=== PATIENT | female | born 1940 | race Caucasian/White ===

== ENCOUNTER 2017-06-10 15:44 | Outpatient (CLI) | payer MEDICARE, OTHER ==
[2017-06-10 17:20] LABS: FERRITIN 71.2 ng/mL (11.0-306.8)
[2017-06-10 17:32] LABS: THYROID STIMULATING HORMONE 1.59 uIU/mL (0.34-5.60)
== END 2017-06-10 15:45 | disposition home or self-care (01) ==
LOC: LAB 15:44
PROVIDERS: ATTEND Internal Medicine
DX: F32.9 Major depressive disorder, single episode, unspecified (principal); D64.0 Hereditary sideroblastic anemia; R53.83 Other fatigue; I10 Essential (primary) hypertension; E03.9 Hypothyroidism, unspecified; M25.569 Pain in unspecified knee; M54.2 Cervicalgia
CPT/HCPCS: 36415; 82728; 84439; 84443; 84481

== ENCOUNTER 2017-08-19 13:52 | Outpatient (CLI) | payer MEDICARE, OTHER | END 2017-08-19 13:53 | disposition home or self-care (01) | LOC: RT 13:52 | PROVIDERS: ATTEND Orthopaedic Surgery Orthopaedic Surgery of the Spine | DX: Z01.810 Encounter for preprocedural cardiovascular examination (principal) | CPT/HCPCS: 93005 ==

== ENCOUNTER 2018-06-10 12:19 | Outpatient (CLI) | payer MEDICARE, OTHER ==
[2018-06-10 13:09] LABS: ALBUMIN 4.1 g/dL (3.2-5.5); ALBUMIN/GLOBULIN RATIO 1.2 (1.0-2.2); BILIRUBIN,TOTAL 0.4 mg/dL (0.2-1.0); CALCIUM 9.2 mg/dL (8.5-10.3); CREATININE 0.6 mg/dL (0.4-1.0); TOTAL PROTEIN 7.5 g/dL (6.7-8.2)
[2018-06-10 13:25] LABS: THYROID STIMULATING HORMONE 1.78 uIU/mL (0.34-5.60)
[2018-06-10 13:27] LABS: FREE T4 (FREE THYROXINE) 0.68 ng/dL (0.58-1.64)
[2018-06-10 13:31] LABS: FERRITIN 61.5 ng/mL (11.0-306.8)
== END 2018-06-10 12:20 | disposition home or self-care (01) ==
LOC: LAB 12:19
PROVIDERS: ATTEND Internal Medicine
DX: R53.83 Other fatigue (principal); I10 Essential (primary) hypertension; E03.9 Hypothyroidism, unspecified; M54.2 Cervicalgia; E87.8 Other disorders of electrolyte and fluid balance, not elsewhere classified; D64.9 Anemia, unspecified; D64.0 Hereditary sideroblastic anemia; E55.9 Vitamin D deficiency, unspecified
CPT/HCPCS: 36415; 80053; 82306; 82728; 84439; 84443; 84481

== ENCOUNTER 2020-09-01 22:16 | Outpatient (CLI) | payer MEDICARE, OTHER | END 2020-09-01 22:17 | disposition critical access hospital (66) | LOC: EMS 22:16 | PROVIDERS: ATTEND Surgery | DX: R07.89 Other chest pain (principal); R20.0 Anesthesia of skin | CPT/HCPCS: A0425; A0427 ==

== ENCOUNTER 2020-09-01 22:26 | Inpatient (IN) | payer MEDICARE, OTHER ==
--- NOTE | 2020-09-01 22:43 | ED Physician Documentation ---
PD HPI CHEST PAIN - Stated complaint Stated Complaint: THROAT PX/ CP - Chief complaint Chief Complaint: Cardiac - History obtained from History obtained from: Patient, EMS - History of Present Illness Timing - onset: Enter time (21:00) Timing - onset during: Rest Timing - details: Abrupt onset Pain level max: 4 Pain level now: 0 Quality: Pressure, Pain, Other (burning) Location: Other (throat) Radiation: Other (midline chest) Improved by: Nothing Worsened by: Other (no apparent exacerbating factors) Associated symptoms: No: Shortness of air, Diaphoresis, Nausea, Vomiting, Feeling faint / dizzy, Palpitations Similar symptoms before: Has not had sx before Recently seen: Not recently seen - Additional information Additional information: BIBA. Patient took 325mg ASA x 2 prior to EMS arrival. c/o sudden onset of pain and pressure sensation as well as burning in her throat. This started approximately 9 PM tonight while sitting at home listening to her reading to her. The pain subsequently radiated to her anterior midline chest. She says she briefly had bilateral shoulder numbness as well. She denies palpitations including sensation of racing or skipping palpitations. EMS found patient to be in PRABHA with rate as high as 180s; given 15 mg IV cardizem en route with improvement in heart rate although she remains tachycardic en route and on arrival (110s-130s). Denies h/o similar symptoms and denies h/o atrial fibrillation. Review of Systems Constitutional: reports: Reviewed and negative Eyes: reports: Reviewed and negative Ears: reports: Reviewed and negative Nose: reports: Reviewed and negative Throat: reports: Reviewed and negative. denies: Sore throat ("throat pain", but no sore throat per se) Cardiac: reports: Chest pain / pressure. 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 denies: Generalized weakness, Focal weakness PD PAST MEDICAL HISTORY - Past Medical History Past Medical History: Yes Cardiovascular: Hypertension Endocrine/Autoimmune: HyPOthyroidism - Past Surgical History Past Surgical History: No - Present Medications Home Medications: Ambulatory Orders Medication Instructions Recorded Confirmed Atenolol/Chlorthalidone [Tenoretic 1 tab PO DAILY 09/02/20 09/02/20 50 Tablet] Cholecalciferol (Vitamin D3) 1 tab PO DAILY 09/02/20 09/02/20 [Vitamin D3] Potassium Chloride 1 tab PO BID 09/02/20 09/02/20 Progesterone,Micronized 1 tab PO DAILY 09/02/20 09/02/20 [Prometrium] Thyroid,Pork [[place] Thyroid] 2 tab PO DAILY 09/02/20 09/02/20 - Allergies Allergies/Adverse Reactions: Allergies Allergy/AdvReac Type Severity Reaction Status Date / Time No Known Drug Allergies Allergy Verified 09/01/20 22:38 - Living Situation Living Situation: reports: With family Living Arrangement: reports: At home - Social History Does the pt smoke?: No PD ED PE NORMAL - Vitals Vital signs reviewed: Yes - General General: Alert and oriented X 3, No acute distress, Well developed/nourished - Neck Neck: Supple, no meningeal sign, No JVD - Cardiac Cardiac: No murmur - Respiratory Respiratory: No respiratory distress, Clear bilaterally - Abdomen Abdomen: Soft, Non tender - Derm Derm: Normal color, Warm and dry - Extremities Extremities: No edema - Neuro Neuro: Alert and oriented X 3 PD ED PE EXPANDED - Cardiac Cardiac: Tachy, Irregularly irregular Results - Vitals Vitals: Vital Signs - 24 hr 09/01/20 09/01/20 09/01/20 22:26 22:40 23:10 Temperature 36.6 C 36.6 C Heart Rate 110 H 110 H 121 H Respiratory 20 20 16 Rate Blood Pressure 157/93 H 157/93 H 151/98 H O2 Saturation 97 97 99 09/01/20 09/02/20 23:23 01:32 Temperature Heart Rate 97 152 H Respiratory 15 Rate Blood Pressure 115/67 O2 Saturation 99 Oxygen O2 Source Room air - EKG (time done) No standard instances Rate: Rate (enter#) (111), Tachy Rhythm: Atrial fibrillation [place]: Normal QRS: LVH Ischemia: Normal ST segments - Labs Labs: Laboratory Tests 09/01/20 09/01/20 09/01/20 22:45 22:45 22:45 WBC 7.4 RBC 4.50 Hgb 13.9 Hct 41.3 MCV 91.8 MCH 30.9 MCHC 33.7 RDW 12.9 Plt Count 266 MPV 9.1 Neut # (Auto) 4.8 Lymph # (Auto) 1.5 Tucker # (Auto) 0.8 Eos # (Auto) 0.2 Baso # (Auto) 0.0 Absolute Nucleated RBC 0.00 Nucleated RBC % 0.0 PT INR APTT Sodium 134 L Potassium 3.0 L Chloride 98 L Carbon Dioxide 26 Anion Gap 10.0 BUN 23 H Creatinine 0.7 Estimated GFR (MDRD) 80 L Glucose 143 H Calcium 8.9 Total Bilirubin 0.8 AST 26 ALT 20 Alkaline Phosphatase 42 Troponin I High Sens 7.5 Total Protein 7.5 Albumin 3.8 Globulin 3.7 Albumin/Globulin Ratio 1.0 Lipase 33 TSH 09/01/20 09/01/20 22:45 23:03 WBC RBC Hgb Hct MCV MCH MCHC RDW Plt Count MPV Neut # (Auto) Lymph # (Auto) Tucker # (Auto) Eos # (Auto) Baso # (Auto) Absolute Nucleated RBC Nucleated RBC % PT 12.6 INR 1.1 APTT 26.5 Sodium Potassium Chloride Carbon Dioxide Anion Gap BUN Creatinine Estimated GFR (MDRD) Glucose Calcium Total Bilirubin AST ALT Alkaline Phosphatase Troponin I High Sens Total Protein Albumin Globulin Albumin/Globulin Ratio Lipase TSH 6.85 H - Rads (name of study) chest xray Radiology: Prelim report reviewed, See rad report CT chest angio (PE study) Radiology: Prelim report reviewed, See rad report PD MEDICAL DECISION MAKING - ED course Complexity details: reviewed results, re-evaluated patient, considered differential, d/w patient, d/w family ED course: arrives in new-onset PRABHA with modest improvement in rate after 15mg IV cardizem by medics. Given 15mg IV cardizem in ED and her heart rate was subsequently 100s-110s but she did not convert to NSR, subsequently heart rate gradually but steadily increased, again getting as high as 170s at times. Of note, she continued to deny feeling any sensation of palpitations, thus there is not a confident time of onset of the atrial fibrillation and thus I did not attempt electrocardioversion. IV cardizem drip started and case d/w hospitalist who accepts admission contingent on CT chest to r/o PE Departure - Departure Disposition: 66 [facility] DC/Xfer Clinical Impression: Rapid atrial fibrillation, Chest pain Condition: Stable Discharge Date/Time: 09/02/20 03:24
[2020-09-01 23:05] LABS: ALBUMIN 3.8 g/dL (3.2-5.5); BILIRUBIN,TOTAL 0.8 mg/dL (0.2-1.0); CALCIUM 8.9 mg/dL (8.5-10.3); CREATININE 0.7 mg/dL (0.4-1.0); TOTAL PROTEIN 7.5 g/dL (6.7-8.2)
[2020-09-01] MEDS ORDERED: diltiaZEM INJ 5 MG/ML VIAL IVP STA (23:05)
[2020-09-01 23:12] LABS: BASOPHILS % (AUTO) 0.4 %; EOSINOPHILS # (AUTO) 0.2 10^3/uL (0.0-0.7); EOSINOPHILS % (AUTO) 2.3 %; HGB - HEMOGLOBIN 13.9 g/dL (12.0-16.0); LYMPHOCYTES # (AUTO) 1.5 10^3/uL (1.5-3.5); LYMPHOCYTES % (AUTO) 20.4 %; MEAN CORPUSCULAR HEMOGLOBIN 30.9 pg (27.0-31.0); MEAN CORPUSCULAR HGB CONC 33.7 g/dL (32.0-36.0); MEAN CORPUSCULAR VOLUME 91.8 fL (81.0-99.0); MEAN PLATELET VOLUME 9.1 fL (7.9-10.8); MONOCYTES # (AUTO) 0.8 10^3/uL (0.0-1.0); MONOCYTES % (AUTO) 11.1 %; NEUTROPHILS # (AUTO) 4.8 10^3/uL (1.5-6.6); NEUTROPHILS % (AUTO) 65.5 %; PLT - PLATELET COUNT 266 10^3/uL (130-450); RED CELL DISTRIBUTION WIDTH 12.9 % (12.0-15.0); WHITE BLOOD COUNT 7.4 x10^3/uL (4.8-10.8)
[2020-09-01 23:14] LABS: INR 1.1 (0.8-1.2); PT - PROTHROMBIN TIME 12.6 secs (9.9-12.6)
[2020-09-01 23:21] LABS: PARTIAL THROMBOPLASTIN TIME 26.5 secs (24.9-33.3)
[2020-09-02] MEDS ORDERED: DILTIAZEM 125 MG in DEXTROSE 5% 100 ML IV STA (01:52)
[2020-09-02] MEDS ORDERED: ACETAMINOPHEN 325 MG TABLET PO PRN (02:02)
[2020-09-02] MEDS ORDERED: ONDANSETRON 4 MG/2 ML VIAL IVP PRN (02:02)
[2020-09-02] MEDS ORDERED: SODIUM CHLORIDE FLUSH 0.9% 10 ML SYRINGE IVP PRN (02:02)
[2020-09-02] MEDS ORDERED: diltiaZEM INJ 5 MG/ML VIAL ONE (02:08)
--- NOTE | 2020-09-02 02:12 | HISTORY & PHYSICAL EXAMINATION ---
Chief Complaint - Chief Complaint Chief Complaint: Chest Pain History of Present Illness - Admitted From Admitted From:: [facility] ED - History Obtained From Records Reviewed: Yes History obtained from: Patient - History of Present Illness HPI Comment/Other: Patient is an 80-year-old female with medical history significant for hypertension, hypothyroidism, hypokalemia, arthritis and insomnia who presented to the ED with a complaint of a strong pressure/burning sensation in her throat which radiated to her chest and bilateral shoulder numbness. This happened around 9:30 PM on September 01, 2020 while she was sitting on the couch reading a book. As a result EMS was called. Upon arrival she was noted to be in atrial fibrillation with rapid ventricular rhythm with a heart rate of 180. She was given diltiazem 15 mg IV x1 and then brought to the ED. At the time of my assessment she denied any difficulty breathing, chest pain, abdominal pain, nausea, vomiting, fever or chills. She was given another dose of diltiazem 15 mg IV in the ED which resulted in her heart rate improving to a range of 110 to 120. However shortly after that heart rate fluctuated between 130s to 150s. Consequently she was placed on a diltiazem drip and presented for admission. She denies any previous occurrence of atrial fibrillation and aside from high blood pressure she denies any cardiovascular disease. History - Past Medical History Cardiovascular: reports: Hypertension Endocrine/Autoimmune: reports: HyPOthyroidism Musculoskeletal: reports: Osteoarthritis Other Past Medical History: Hypokalemia, Insomnia - Family & Social History Family History: Mother: Hypertension, Father: Hypertension Living arrangement: At home Living Situation: With spouse/s.o. Social History Notes: She does not use tobacco products, recreational substances or alcohol. - POLST Patient has POLST: No POLST Status: Full Code Meds/Allgy - Home Medications Home Medications: Ambulatory Orders Medication Instructions Recorded Confirmed Atenolol/Chlorthalidone [Tenoretic 1 tab PO DAILY 09/02/20 09/02/20 50 Tablet] Cholecalciferol (Vitamin D3) 1 tab PO DAILY 09/02/20 09/02/20 [Vitamin D3] Potassium Chloride 1 tab PO BID 09/02/20 09/02/20 Progesterone,Micronized 1 tab PO DAILY 09/02/20 09/02/20 [Prometrium] Thyroid,Pork [[place] Thyroid] 2 tab PO DAILY 09/02/20 09/02/20 - Allergies Allergies/Adverse Reactions: Allergies Allergy/AdvReac Type Severity Reaction Status Date / Time No Known Drug Allergies Allergy Verified 09/01/20 22:38 Review of Systems - Constitutional Constitutional: denies: Fatigue, Fever, Chills, Malaise, Weakness - Eyes Eyes: denies: Pain - Ears, Nose & Throat Ears, Nose & Throat: denies: Ear pain - Cardiovascular Cariovascular: reports: Irregular heart rate, Chest pain. denies: Palpitations, Edema, Lightheadedness, Syncope, Exertional dyspnea - Respiratory Respiratory: denies: Cough, Sputum production, Wheezing, SOB at rest, SOB with exertion - Gastrointestinal Gastrointestinal: denies: Abdominal pain, Abdominal distention, Constipation, Diarrhea, Nausea, Vomiting - Genitourinary Genitourinary: denies: Dysuria, Frequency, Urgency, Hematuria - Musculoskeletal Musculoskeletal: denies: Muscle pain, Back pain, Muscle aches, Stiffness - Integumentary Integumentary: denies: Rash, Pruritis, Lesions - Neurological Neurological: denies: General weakness, Focal weakness, Headache, Dizziness - Psychiatric Psychiatric: denies: Depression, Anxiety - Endocrine Endocrine: denies: Polyuria, Polydypsia - Hematologic/Lymphatic Hematologic/Lymphatic: denies: Anemia, Bruising Prior Level of Functionality: Patient is independent of activities of daily living Exam - Vital Signs Vital Signs: Vital Signs x48h Temp Pulse Resp BP Pulse Ox 09/02/20 01:32 152 H 15 115/67 99 09/01/20 23:23 97 09/01/20 23:10 121 H 16 151/98 H 99 09/01/20 22:40 36.6 C 110 H 20 157/93 H 97 09/01/20 22:26 36.6 C 110 H 20 157/93 H 97 - Physical Exam General Appearance: positive: No acute distress, Alert Eyes Bilateral: positive: PERRL, EOMI ENT: positive: No signs of dehydration Neck: positive: No JVD, Trachea midline Respiratory: positive: Chest non-tender, No respiratory distress, Breath sounds nml. negative: Wheezes, Rales, Rhonchi Cardiovascular: positive: Irregularly irregular, Tachycardia Abdomen: positive: Non-tender, No organomegaly, Nml bowel sounds, No distention. negative: Guarding, Rebound Back: positive: Nml inspection Skin: positive: Color nml, No rash, Warm, Dry Extremities: positive: Non-tender, Full ROM, Nml appearance, No pedal edema Neurologic/Psychiatric: positive: Oriented x3, Mood/affect nml Conclusion/Plan - Problem List (1) Atrial fibrillation with RVR Conclusion/Plan: New onset. Etiology is undetermined. Patient was given diltiazem 15 mg IV x2 doses. Her heart rate improved to about 100 but subsequently suddenly increased to about 140s. For lack of knowledge of specific time of onset, cardioversion was not attempted. The patient was started on a diltiazem drip. Will continue. 2D echo ordered for the morning. Patient takes and atenolol/HCTZ combination at home. We will continue the atenolol 50 mg p.o. daily. Patient's Chadvasc score is 4. She would likely need an oral anticoagulant upon discharge. (2) Chest pain Conclusion/Plan: It is atypical vs noncardiac(more likely, considering her pain started in her neck and then radiated down towards chest). This sensation may also have been as a result of the rapid ventricular rhythm It resolved with improvement in her heart rate after administration of diltiazem 50 mg IV x1 by EMS. Patient does not have any significant cardiac history. Initial troponin was 7.5. Will trend X2. Patient was given aspirin 325 mg p.o. x1 Qualifiers: Chest pain type: unspecified Qualified Code(s): R07.9 - Chest pain, unspecified (3) Hypertension Conclusion/Plan: Patient is currently on a diltiazem drip. At home the patient takes atenolol/HCTZ combination. We will continue the atenolol 50 mg p.o. daily. (4) Hypokalemia Conclusion/Plan: This is chronic. Patient is on supplemental potassium at home. 10 mEq capsules. 1 capsule p.o. twice daily Will replace and recheck with a.m. labs. We will also check magnesium and replace accordingly. (5) Hypothyroidism Conclusion/Plan: Patient takes [place] Thyroid 15 mg tablets. 2 tablets p.o. daily Will resume patient's home medications once verified. (6) Insomnia Conclusion/Plan: She takes Klonopin for sleep. - Lab Results Fish Bones: 09/01/20 22:45 09/01/20 22:45 Core Measures - Anticipated LOS I expect patient to be DC'd or transferred within 96 hours.: Yes - DVT/VTE - Prophylaxis VTE/DVT Device ordered at admit?: Yes VTE/DVT Prophylaxis med ordered at admit?: Yes
[2020-09-02] MEDS: POTASSIUM CHLORIDE 20 MEQ TABLET PO STA ×2 (02:21→02:34)
[2020-09-02] MEDS ORDERED: IOVERSOL 320 100 ML VIAL IVP ONE ×2 (02:31→03:05)
[2020-09-02] MEDS ORDERED: ASPIRIN 325 MG TABLET PO STA (02:45)
[2020-09-02] MEDS: diltiaZEM INJ 125 MG in DEXTROSE 5% 100 ML IV SCH ×2 (03:33→20:25)
[2020-09-02] MEDS: POTASSIUM CHLOR 10 MEQ/100 ML 10 MEQ/100 ML BAG IV SCH ×4 (04:01→09:50)
[2020-09-02 04:36] LABS: BASOPHILS % (AUTO) 0.5 %; EOSINOPHILS # (AUTO) 0.2 10^3/uL (0.0-0.7); EOSINOPHILS % (AUTO) 1.9 %; HGB - HEMOGLOBIN 13.8 g/dL (12.0-16.0); LYMPHOCYTES % (AUTO) 24.5 %; MEAN CORPUSCULAR HEMOGLOBIN 30.3 pg (27.0-31.0); MEAN CORPUSCULAR HGB CONC 33.2 g/dL (32.0-36.0); MEAN CORPUSCULAR VOLUME 91.4 fL (81.0-99.0); MEAN PLATELET VOLUME 8.9 fL (7.9-10.8); MONOCYTES # (AUTO) 0.9 10^3/uL (0.0-1.0); MONOCYTES % (AUTO) 11.4 %; NEUTROPHILS # (AUTO) 5.1 10^3/uL (1.5-6.6); NEUTROPHILS % (AUTO) 61.3 %; PLT - PLATELET COUNT 286 10^3/uL (130-450); RED BLOOD COUNT 4.55 10^6/uL (4.20-5.40); WHITE BLOOD COUNT 8.3 x10^3/uL (4.8-10.8)
[2020-09-02 04:45] LABS: CALCIUM 8.8 mg/dL (8.5-10.3); CREATININE 0.6 mg/dL (0.4-1.0)
[2020-09-02] MEDS ORDERED: atenoloL 25 MG TABLET PO ONE (05:00)
[2020-09-02] MEDS: clonazePAM 0.5 MG TABLET PO STA ×2 (05:01→05:03)
[2020-09-02] MEDS: MAGNESIUM OXIDE 400 MG TABLET PO SCH ×2 (05:52→11:59)
[2020-09-02] MEDS ORDERED: SODIUM CHLORIDE 0.9% 500 ML IV ONE ×2 (06:27→06:37)
[2020-09-02] MEDS: SODIUM CHLORIDE 0.9% 1,000 ML IV SCH ×2 (07:05→18:28)
[2020-09-02] MEDS: SODIUM CHLORIDE FLUSH 0.9% 10 ML SYRINGE IVP SCH ×2 (07:59→16:16)
--- NOTE | 2020-09-02 08:57 | CT Report ---
PROCEDURE: ANGIO CHEST W/WO INDICATIONS: chest pain, new onset a. fib CONTRAST: IV CONTRAST: Optiray 320 ml: 80 PO CONTRAST: *NO PO CONTRAST TECHNIQUE: After the administration of intravenous contrast, 2 mm thick sections acquired from the pulmonary api rehan to the posterior costophrenic angles. 3-dimensional maximum intensity projection (MIP) coronal a nd sagittal reformats were then acquired through the thorax. For radiation dose reduction, the follow ing was used: automated exposure control, adjustment of mA and/or kV according to patient size. COMPARISON: Partially visualized cervical spine fixation hardware. FINDINGS: Image quality: Excellent. Pulmonary arteries: Pulmonary arteries are normal in size, and demonstrate no intraluminal filling d efects to suggest central pulmonary embolism. Lungs and pleura: Patchy opacities noted in the lung bases bilaterally left greater than right. Bibas ilar atelectasis. 6 mm subpleural nodule noted in the left lung base (series 6, image 237). 3 mm nodu le noted in the left lower lobe (series 6, image 202). 7 mm nodule noted in the right middle lobe (se joel 6, image 237). Calcified granuloma noted in the right upper lobe (series 6, image 166).7 mm nodu le noted in the right middle lobe (series 6 image 194). No pleural effusions or pneumothorax. Centra l and peripheral airways are patent. Mediastinum: Heart size is normal, without pericardial effusion. No mediastinal or hilar adenopathy . Thoracic aorta is normal in caliber and enhancement. Esophagus is normal in caliber, without hiat al hernia. Bones and chest wall: No suspicious bony lesions. Ribs and thoracic spine appear intact throughout. The thyroid is normal. Spine degenerative disc disease and facet arthropathy are noted. No axillar y or supraclavicular adenopathy. Abdomen: Partially visualized left renal cysts. Visualized upper abdominal solid organs otherwise ap pear normal in the early arterial phase of enhancement. IMPRESSION: 1. No pulmonary embolus. 2. Patchy airspace opacities in the lung bases left greater than right. Finding could represent atele ctasis, aspiration or pneumonia. 3. Bibasilar bronchiectasis. 4. Multiple bilateral lung nodules. Largest nodule measures 7 mm. Recommend follow-up CT scan in 6-12 months based on criteria outlined below. Fleischner Society criteria for lung nodule followup. Solid nodules Solitary nodule size: <6 mm * low risk patients: no follow-up needed * high risk patients: optional CT at 12 months Solitary nodule size: 6-8 mm * low risk patients: follow-up at 6-12 months, then consider further follow-up at 18-24 months * high risk patients: initial follow-up CT at 6-12 months and then at 18-24 months if no change Solitary nodule size: >8 mm * either low or high risk patients * consider follow-up CT at 3 months, and/or CT-PET, and/or biopsy Multiple nodules size: <6 mm * low risk patients: no routine follow-up * high risk patients: optional CT at 12 months Multiple nodules size: 6-8 mm * low risk patients: follow-up at 3-6 months, then consider further follow-up at 18-24 months * high risk patients: follow-up at 3-6 months, then at 18-24 months if no change Multiple nodules size: >8 mm * low risk patients: follow-up at 3-6 months, then consider further follow-up at 18-24 months * high risk patients: follow-up at 3-6 months, then at 18-24 months if no change Recommendations do not apply to lung cancer screening, patient's with immunosuppression or patients w ith known primary cancer. Reviewed by: Indira Velasquez MD, PhD on 09/02/2020 8:55 AM PST Approved by: Indira Velasquez MD, PhD on 09/02/2020 8:55 AM PST Station ID: [id number]
--- NOTE | 2020-09-02 09:08 | XRAY Report ---
PROCEDURE: Chest 1 View X-Ray INDICATIONS: chest pain TECHNIQUE: One view of the chest was acquired. COMPARISON: None FINDINGS: Surgical changes and devices: None. Lungs and pleura: No pleural effusions or pneumothorax. Patchy opacities noted in the left lung base . Mediastinum: Mediastinal contours appear normal. Heart size is normal. Bones and chest wall: No suspicious bony lesions. Overlying soft tissues appear unremarkable. IMPRESSION: Left basilar patchy airspace opacities concerning for aspiration versus pneumonia. Reviewed by: Indira Velasquez MD, PhD on 09/02/2020 9:07 AM [facility] Approved by: Indira Velasquez MD, PhD on 09/02/2020 9:07 AM [facility] Station ID: [id number]
[2020-09-02] MEDS: ENOXAPARIN 40 MG/0.4 ML SYRINGE SUBQ SCH (09:50)
[2020-09-02 10:01] LABS: CHOLESTEROL 199 mg/dL; HDL CHOLESTEROL 50 mg/dL; LDL CHOLESTEROL,CALCULATED 138 mg/dL; LDL/HDL RATIO 2.8 (<4.4); VLDL CHOLESTEROL 11 mg/dL
[2020-09-02] MEDS: CHOLECALCIFEROL 5,000 UNIT CAPSULE PO SCH (10:09)
[2020-09-02] MEDS ORDERED: THYROID 60 MG TABLET PO SCH (11:00)
--- NOTE | 2020-09-02 11:05 | PROVIDER PROGRESS NOTE ---
Hospitalist Cross-cover Note - Cross-Cover Note Cross-Cover Note: HR 110 in Afib, after she got her morning po Atenolol plus she was on Dilt drip causing HR drop to 40 (Dilt drip turned off) BP 120 after a saline bolus of 500 cc for treating BP 80-[address] chest showed infiltrates (and she is not on antibx yet) Troponin 7>> 24>> 15 TSH elevated at 6.8 Na 134>> 133 BUN/creat 23/ 0.7>> 20/0.6 Lipid panel with LDL 138 and low HDL Echo was done and showed normal LV and RV contractility Imp: Type 2 IA (demand ischemia due to RVR) Afib with RVR New onset Afib Comm acquired pneumonia (which could be the reason for new Afib) Hypothyroidism, under treated Hypotension probably from volume depletion (was on HCTZ) Hx HTN Hypovolemic hyponatremia Pre-renal azotemia, resolved Hyperlipidemia (LDL 150) Plan: Start aspirin and statin Obtain sputum culture Start antibx for CAP (Zithro + Ceftriaxone) Check respiratory panel (COVID and others) Continue medications for rate control; resume the diltiazem drip now, later this can be weaned down as an oral dose of beta-jimy or Cardizem are started. Her CHADS score = 3. Discussion is needed with her about starting long-term anticoagulation. Continue telemetry. Increase thyroid replacement dose. Continue gentle iv hydration.
[2020-09-02] MEDS ORDERED: AZITHROMYCIN 250 MG TABLET PO STA (11:37)
--- NOTE | 2020-09-02 11:40 | PHARMACY PROGRESS NOTE ---
- Best Possible Medication History Admit Date and Time: 09/02/20 0202 Processed by: Pharmacy Medication History completed: Yes Patient Interview: Completed Secondary Source(s): Physician records, Pharmacy records As the person ultimately responsible for medication therapy, providers are able to order a medication from an existing home medication list in [facility] via the "Reconcile Routine" prior to Confirmation of that medication by fire support man. Such practice is discouraged except when the physician, in their clinical judgment, deems that a medical need exists for a medication without regard to previous use.
[2020-09-02] MEDS ORDERED: cefTRIAXone 2 GM in SODIUM CHLORIDE 0.9% MINIBAG 100 ML IV SCH (12:00)
[2020-09-02] MEDS: ASPIRIN EC 81 MG TABLET PO SCH (12:08)
[2020-09-02] MEDS: ATORVASTATIN 40 MG TABLET PO SCH (20:27)
[2020-09-02] MEDS: diltiaZEM 30 MG TABLET PO SCH (21:55)
[2020-09-02] MEDS: clonazePAM 0.5 MG TABLET PO SCH (21:56)
[2020-09-02] MEDS: LACTOBACILLUS RHAMNOSUS GG CAPSULE PO SCH (22:46)
[2020-09-03] MEDS: SODIUM CHLORIDE FLUSH 0.9% 10 ML SYRINGE IVP SCH ×4 (00:50→20:59)
[2020-09-03] MEDS: diltiaZEM 30 MG TABLET PO SCH ×2 (03:47→09:21)
[2020-09-03] MEDS: SODIUM CHLORIDE 0.9% 1,000 ML IV SCH ×3 (03:57→14:10)
[2020-09-03 05:41] LABS: BASOPHILS % (AUTO) 0.4 %; EOSINOPHILS # (AUTO) 0.2 10^3/uL (0.0-0.7); EOSINOPHILS % (AUTO) 2.5 %; HGB - HEMOGLOBIN 12.6 g/dL (12.0-16.0); LYMPHOCYTES # (AUTO) 1.8 10^3/uL (1.5-3.5); LYMPHOCYTES % (AUTO) 22.2 %; MEAN CORPUSCULAR HEMOGLOBIN 30.4 pg (27.0-31.0); MEAN CORPUSCULAR HGB CONC 32.5 g/dL (32.0-36.0); MEAN CORPUSCULAR VOLUME 93.7 fL (81.0-99.0); MONOCYTES # (AUTO) 0.8 10^3/uL (0.0-1.0); NEUTROPHILS # (AUTO) 5.2 10^3/uL (1.5-6.6); NEUTROPHILS % (AUTO) 64.5 %; PLT - PLATELET COUNT 252 10^3/uL (130-450); RED BLOOD COUNT 4.14 10^6/uL (4.20-5.40); RED CELL DISTRIBUTION WIDTH 13.2 % (12.0-15.0); WHITE BLOOD COUNT 8.1 x10^3/uL (4.8-10.8)
[2020-09-03 05:54] LABS: CALCIUM 8.3 mg/dL (8.5-10.3); CREATININE 0.6 mg/dL (0.4-1.0); MAGNESIUM 1.6 mg/dL (1.7-2.8); PHOSPHORUS 2.5 mg/dL (2.5-4.6)
[2020-09-03] MEDS ORDERED: POTASSIUM CHLORIDE 20 MEQ/15 ML UDC PO ONE (07:00)
[2020-09-03] MEDS: THYROID 60 MG TABLET PO SCH (08:02)
[2020-09-03] MEDS: MAGNESIUM OXIDE 400 MG TABLET PO SCH ×2 (08:04→13:56)
[2020-09-03] MEDS ORDERED: POTASSIUM CHLORIDE 20 MEQ TABLET PO ONE (08:09)
[2020-09-03] MEDS ORDERED: AZITHROMYCIN 250 MG TABLET PO SCH (09:00)
[2020-09-03] MEDS: CHOLECALCIFEROL 5,000 UNIT CAPSULE PO SCH (09:22)
[2020-09-03] MEDS: ASPIRIN EC 81 MG TABLET PO SCH (09:22)
[2020-09-03] MEDS: LACTOBACILLUS RHAMNOSUS GG CAPSULE PO SCH (09:22)
[2020-09-03] MEDS: ENOXAPARIN 40 MG/0.4 ML SYRINGE SUBQ SCH (09:23)
[2020-09-03] MEDS: atenoloL 25 MG TABLET PO SCH ×2 (13:52→15:14)
--- NOTE | 2020-09-03 16:22 | PROVIDER PROGRESS NOTE ---
Subjective - Prog Note Date Prog Note Date: 09/03/20 Prog Note Time: 16:30 - Subjective Pt reports feeling: Improved Subjective: she has no sense of the fast afib and wants to go home. we've been adjusting the meds to attain rate control and finally off dilt this afternoon. Current Medications - Current Medications Current Medications: Active Medications Acetaminophen (Tylenol) 650 mg PO Q4HR PRN PRN Reason: Pain 1 to 4 Aspirin (Ecotrin) 81 mg PO DAILY [facility] Last Admin: 09/03/20 09:22 Dose: 81 mg Documented by: Atenolol (Tenormin) 50 mg PO DAILY [facility] Last Admin: 09/03/20 15:14 Dose: Not Given Documented by: Atorvastatin Calcium (Lipitor) 80 mg PO QPM [facility] Last Admin: 09/02/20 20:27 Dose: 80 mg Documented by: Cholecalciferol (Vitamin D3) 5,000 unit PO DAILY [facility] Last Admin: 09/03/20 09:22 Dose: 5,000 unit Documented by: Clonazepam (Klonopin) 1 mg PO QPM ALEKSANDR Last Admin: 09/02/20 21:56 Dose: 1 mg Documented by: Diltiazem HCl (Cardizem) 60 mg PO Q6H ALEKSANDR Last Admin: 09/03/20 15:15 Dose: Not Given Documented by: Enoxaparin Sodium (Lovenox) 40 mg SUBQ DAILY [facility] Last Admin: 09/03/20 09:23 Dose: 40 mg Documented by: Diltiazem HCl 125 mg/ Dextrose 125 mls @ 5 mls/hr IV .Q25H [facility]; Protocol Last Titration: 09/03/20 14:30 Dose: 0 mg/hr, 0 mls/hr Documented by: Sodium Chloride (Normal Saline 0.9%) 1,000 mls @ 100 mls/hr IV .Q10H [facility] Last Infusion: 09/03/20 15:36 Dose: 0 mls/hr Documented by: Lactobacillus Rhamnosus (Culturelle) 1 cap PO DAILY [facility] Last Admin: 09/03/20 09:22 Dose: 1 cap Documented by: Ondansetron HCl (Zofran Inj) 4 mg IVP Q6HR PRN PRN Reason: Nausea / Vomiting Sodium Chloride (Normal Saline Flush 0.9%) 10 ml IVP 0100,0900,1700 [facility] Last Admin: 09/03/20 10:39 Dose: Not Given Documented by: Sodium Chloride (Normal Saline Flush 0.9%) 10 ml IVP PRN PRN PRN Reason: NEEDED PER PROVIDER ORDERS Last Admin: 09/03/20 15:37 Dose: 10 ml Documented by: Thyroid ([place] Thyroid) 150 mg PO QDAC [facility] Last Admin: 09/03/20 08:02 Dose: 150 mg Documented by: Atenolol/Chlorthalidone [Tenoretic 50 Tablet] 1 tab PO DAILY 09/02/20 Cholecalciferol [Vitamin D3] 5,000 unit PO DAILY 09/02/20 Potassium Chloride 10 meq PO BIDWM 09/02/20 Progesterone,Micronized [Prometrium] 200 mg PO QPM 09/02/20 Thyroid,Pork [[place] Thyroid] 120 mg PO QDAC 09/02/20 Objective - Vital Signs/Intake & Output Reviewed Vital Signs: Yes Vital Signs: Vital Signs x48h Temp Pulse Resp BP BP Pulse Ox 09/03/20 15:15 122/74 09/03/20 15:00 77 122/74 09/03/20 14:31 79 134/77 H 09/03/20 14:00 104 H 18 144/81 H 09/03/20 13:00 117 H 128/80 09/03/20 12:53 97 09/03/20 12:45 118 H 112/87 H 09/03/20 12:00 36.6 C 96 18 119/64 95 09/03/20 11:00 98 18 117/66 09/03/20 10:00 115 H 19 135/89 H 09/03/20 09:21 106/73 09/03/20 09:00 113 H 20 106/73 09/03/20 07:58 36.6 C 103 H 12 137/78 H 95 Intake & Output: Intake & Output 08/31/20 09/01/20 09/02/20 09/03/20 23:59 23:59 23:59 23:59 Intake Total 2848.499 3740.999 Output Total 325 Balance 2848.499 3415.999 - Objective General Appearance: positive: Alert Eyes Bilateral: positive: PERRL, EOMI ENT: positive: No signs of dehydration Neck: positive: No JVD. negative: Stiff neck Respiratory: positive: No respiratory distress. negative: Wheezes, Rales, Rhonchi Cardiovascular: positive: Irregularly irregular, Tachycardia. negative: Systolic murmur, Gallop/S4, Friction rub Abdomen: positive: Non-tender, No organomegaly, Nml bowel sounds, No distention Skin: positive: Warm, Dry Extremities: positive: Non-tender, No pedal edema Neurologic/Psychiatric: positive: Oriented x3, CN's nml (2-12), Motor nml - Lab Results Fish Bones: 09/03/20 05:28 09/03/20 05:28 Other Labs: Lab Results x24hrs 09/03/20 09/03/20 09/03/20 Range/Units 05:28 05:28 05:28 WBC 8.1 (4.8-10.8) x10^3/uL RBC 4.14 L (4.20-5.40) 10^6/uL Hgb 12.6 (12.0-16.0) g/dL Hct 38.8 (37.0-47.0) % MCV 93.7 (81.0-99.0) fL MCH 30.4 (27.0-31.0) pg MCHC 32.5 (32.0-36.0) g/dL RDW 13.2 (12.0-15.0) % Plt Count 252 (130-450) 10^3/uL MPV 9.0 (7.9-10.8) fL Neut # (Auto) 5.2 (1.5-6.6) 10^3/uL Lymph # (Auto) 1.8 (1.5-3.5) 10^3/uL [place] # (Auto) 0.8 (0.0-1.0) 10^3/uL Eos # (Auto) 0.2 (0.0-0.7) 10^3/uL Baso # (Auto) 0.0 (0.0-0.1) 10^3/uL Absolute Nucleated RBC 0.00 x10^3/uL Nucleated RBC % 0.0 /100WBC Sodium 139 (135-145) mmol/L Potassium 3.0 L (3.5-5.0) mmol/L Chloride 103 (101-111) mmol/L Carbon Dioxide 25 (21-32) mmol/L Anion Gap 11.0 (6-13) BUN 14 (6-20) mg/dL Creatinine 0.6 (0.4-1.0) mg/dL Estimated GFR (MDRD) 96 (>89) Glucose 118 H (70-100) mg/dL Calcium 8.3 L (8.5-10.3) mg/dL Phosphorus 2.5 (2.5-4.6) mg/dL Magnesium 1.6 L (1.7-2.8) mg/dL Albumin 3.1 L (3.2-5.5) g/dL ABX Reporting Has patient been on IV antibiotics over the past 48 hours?: No Assessment/Plan - Problem List (1) Atrial fibrillation with RVR Impression: New onset. Etiology is undetermined.Echocardiogram shows mild concentric left ventricular hypertrophy. Ejection fraction 60 to 65%. RVSP at rest 50 mmHg. No significant valvular dysfunction. She received diltiazem 15 mg, 2 doses in the emergency room. She had abrupt rebound and needed to go on a Cardizem drip. This was then complicated by bradycardia when atenolol was added and we try to get her off the diltiazem drip with p.o. diltiazem and atenolol. Stopping those 2 medicines then cause her to go back into a rapid A. fib. She has been a dilt drip, we have slowly been tapering down, slowly adding diltiazem p.o. and slowly adding her atenolol. Patient's Chadvasc score is 4. She would likely need an oral anticoagulant upon discharge.She and her discussed Coumadin versus a DOAC. They are willing to do the latter. I will call it into her [facility], to make sure that is covered by their . (2) Chest pain Conclusion/Plan: It is atypical vs noncardiac(more likely, considering her pain started in her neck and then radiated down towards chest). This sensation may also have been as a result of the rapid ventricular rhythm It resolved with improvement in her heart rate after administration of diltiazem 50 mg IV x1 by EMS.She tells me that she is not had any further discomfort at the base of her throat or her chest since she is been in the hospital. Patient does not have any significant cardiac history. Initial troponin was 7.5>> >>24.6 >>15.0 Recommend outpatient stress test. She was able to get an office visit scheduled with Dr. Jailene Lawson at [facility] in [place] for September 11, 2020 at 10 AM. (3) Hypertension Conclusion/Plan: Patient is currently on a diltiazem drip. At home the patient takes atenolol/HCTZ combination. We will continue the atenolol 50 mg p.o. daily. (4) Hypokalemia Conclusion/Plan: This is chronic. Patient is on supplemental potassium at home. 10 mEq capsules. 1 capsule p.o. twice daily K is 3.0 today and replacement ordered. check in am. (5) Hypothyroidism Conclusion/Plan: Patient takes [place] Thyroid 15 mg tablets. 2 tablets p.o. daily Will resume patient's home medications once verified. (6) Insomnia Conclusion/Plan: She takes Klonopin for sleep. Qualifiers: Chest pain type: unspecified Qualified Code(s): R07.9 - Chest pain, unspecified
[2020-09-03] MEDS ORDERED: RIVAROXABAN 10 MG TABLET PO SCH (18:00)
[2020-09-03] MEDS: ATORVASTATIN 40 MG TABLET PO SCH (20:59)
[2020-09-03] MEDS: clonazePAM 0.5 MG TABLET PO SCH (22:58)
[2020-09-04 05:50] LABS: BASOPHILS % (AUTO) 0.3 %; EOSINOPHILS # (AUTO) 0.2 10^3/uL (0.0-0.7); EOSINOPHILS % (AUTO) 1.9 %; HGB - HEMOGLOBIN 12.5 g/dL (12.0-16.0); LYMPHOCYTES # (AUTO) 2.1 10^3/uL (1.5-3.5); LYMPHOCYTES % (AUTO) 21.3 %; MEAN CORPUSCULAR HEMOGLOBIN 30.1 pg (27.0-31.0); MEAN CORPUSCULAR HGB CONC 32.3 g/dL (32.0-36.0); MEAN CORPUSCULAR VOLUME 93.3 fL (81.0-99.0); NEUTROPHILS # (AUTO) 6.6 10^3/uL (1.5-6.6); NEUTROPHILS % (AUTO) 66.1 %; PLT - PLATELET COUNT 241 10^3/uL (130-450); RED BLOOD COUNT 4.15 10^6/uL (4.20-5.40); RED CELL DISTRIBUTION WIDTH 13.2 % (12.0-15.0); WHITE BLOOD COUNT 9.9 x10^3/uL (4.8-10.8)
[2020-09-04 06:01] LABS: CALCIUM 8.6 mg/dL (8.5-10.3); CREATININE 0.6 mg/dL (0.4-1.0); MAGNESIUM 1.6 mg/dL (1.7-2.8); PHOSPHORUS 2.9 mg/dL (2.5-4.6)
[2020-09-04] MEDS: diltiaZEM INJ 125 MG in DEXTROSE 5% 100 ML IV SCH (06:16)
[2020-09-04] MEDS: THYROID 60 MG TABLET PO SCH (06:31)
[2020-09-04] MEDS: MAGNESIUM OXIDE 400 MG TABLET PO SCH ×2 (09:02→15:10)
[2020-09-04] MEDS: CHOLECALCIFEROL 5,000 UNIT CAPSULE PO SCH (09:03)
[2020-09-04] MEDS: ASPIRIN EC 81 MG TABLET PO SCH (09:03)
[2020-09-04] MEDS: LACTOBACILLUS RHAMNOSUS GG CAPSULE PO SCH (09:03)
[2020-09-04] MEDS: SODIUM CHLORIDE FLUSH 0.9% 10 ML SYRINGE IVP SCH ×2 (09:03→17:19)
[2020-09-04] MEDS: atenoloL 25 MG TABLET PO SCH (09:03)
[2020-09-04] MEDS: POTASSIUM CHLORIDE 10 MEQ CAPSULE PO SCH ×2 (09:42→17:09)
--- NOTE | 2020-09-04 15:30 | Discharge Plan ---
Discharge Plan Problem Reviewed?: Yes Disposition: Home, Self Care Condition: Stable Prescriptions: dilTIAZem HCL [Diltiazem 24Hr ER (Xr)] 240 mg PO DAILY #30 cap.er.deg atenoloL [Tenormin] 50 mg PO DAILY #60 tablet Rivaroxaban [Xarelto] 20 mg PO DAILY #30 tablet Diet: Regular Activity Restrictions: Activity as Tolerated Shower Restrictions: No Driving Restrictions: No Instruction Topics: Diltiazem tablets, Stroke Prevent Live W Atrial Fib, Atrial Fibrillation Health Concerns: You presented to the emergency room with an ache at the back of your throat, and then you started having discomfort in your upper chest. When you were evaluated in the emergency room you are found to have a very fast irregularly, irregular heartbeat called atrial fibrillation. From a palpitation perspective you were not having any palpitations. An ultrasound of your heart, called an echocardiogram, shows that your left heart chamber is normal. So was your right heart chamber. The valves were normal. The left upper chamber is a little large and may be leading to this irregularly irregular heartbeat. You were not having a heart attack, and your thyroid function studies were normal. Treatment consisted of 2 medicines to slow down your heart rate. Diltiazem and atenolol. You are already on atenolol with chlorthalidone at home. You will need another pill to reduce your risk of stroke from atrial fibrillation and have been started on Xarelto. Plan of Treatment: 1. Take Cardizem CD 240 mg tablet in the morning 2. Take atenolol 50 mg a day in the afternoon. I am taking with the chlorthalidone. I do not think you needed at this time since she will be on 2 medicines to slow down your heart rate and lower your blood pressure. 3. Take the Xarelto with food in the evening. 4. Please see Dr. Jailene Lawson, [facility] cardiology, September 11. You have an appointment with him. I will be sending him a copy of your discharge summary. Dr. Lawson may be changing your medicine a bit. Care Goals: To remain symptom free and without stroke with atrial fibrillation Assessment: Patient understands treatment plan, goals, and will follow through. No Smoking: If you smoke, Please STOP! Call for help. Follow-up with: Meme Walsh PA [Primary Care Provider] - Jailene Lawson MD [Physician No Access] -
--- NOTE | 2020-09-04 15:42 | DISCHARGE SUMMARY ---
"Discharge Summary Admit Date: 09/02/20 Discharge Date: 09/04/20 Discharging Provider: Archana Ferrari MD Primary Care Provider: Meme Walsh and Jailene Lawson MD Code Status: Attempt Resuscitation Condition at Discharge: Stable Discharge Disposition: 01 Home, Self Care - DIAGNOSES Discharge Diagnoses with Status of Each Condition: 1. Atrial fibrillation with RVR 2. Angina 3. Hypertension 4. Hypokalemia 5. Hypothyroidism 6. Insomnia - HPI History of Present Illness: Patient is an 80-year-old female with medical history significant for hypertension, hypothyroidism, hypokalemia, arthritis and insomnia who presented to the ED with a complaint of a strong pressure/burning sensation in her throat which radiated to her chest and bilateral shoulder numbness. This happened around 9:30 PM on September 01, 2020 while she was sitting on the couch reading a book. As a result EMS was called. Upon arrival she was noted to be in atrial fibrillation with rapid ventricular rhythm with a heart rate of 180. She was given diltiazem 15 mg IV x1 and then brought to the ED. At the time of my assessment she denied any difficulty breathing, chest pain, abdominal pain, nausea, vomiting, fever or chills. She was given another dose of diltiazem 15 mg IV in the ED which resulted in her heart rate improving to a range of 110 to 120. However shortly after that heart rate fluctuated between 130s to 150s. Consequently she was placed on a diltiazem drip and presented for admission. She denies any previous occurrence of atrial fibrillation and aside from high blood pressure she denies any cardiovascular disease. CT angiogram was negative for pulmonary emboli. Troponins were normal. TSH was normal. - Past Medical History Cardiovascular: reports: Hypertension Endocrine/Autoimmune: reports: HyPOthyroidism Musculoskeletal: reports: Osteoarthritis Other Past Medical History: Hypokalemia, Insomnia - CONSULTS | PROCEDURES Procedures: 1. Chest/thorax CTA without pulmonary emboli. She has patchy opacities in the lung bases, left greater than right. Partially visualized left renal cyst. Bibasilar bronchiectasis. Multiple bilateral lung nodules, recommend follow-up CT scan in 6 to 12 months. 2. Chest x-ray with left basilar patchy airspace opacity concerning for aspiration versus pneumonia. 3. Echocardiogram with mild concentric left ventricular hypertrophy. Ejection fraction normal at 60 to 65%. RV normal. Mildly abnormal right heart pressures. RVSP 50 mmHg. No significant valvular dysfunction. 4. Lipid panel with triglycerides 53, cholesterol 199, LDL 138, HDL 50. - HOSPITAL COURSE Hospital Course: She was placed on a diltiazem drip after initial tachycardia responded to diltiazem IV push. We then added atenolol. This is her usual home medication. She then had bradycardia and we had to stop the diltiazem drip temporarily. With that tachycardia resumed. We eventually were able to take her off the diltiazem drip and transition her to Cardizem p.o. with atenolol. We have asked her to split up the doses so that she takes Cardizem in the morning, atenolol in the afternoon. Over 24 hours she had a heart rate of 80s and 80s or 90s. Occasionally she would go up to 130 when she got up to go to the bathroom and then would immediately recover when she sat down. We discussed the risk of stroke with atrial fibrillation. Chads Vascor was 4. initially wanted Coumadin. We left it up to them after we discussed DOAC's and Coumadin. They decided on a DOAC and Xarelto was called in. She will need outpatient cardiology consultation. She is already in obtain an a ppointment with her 's cardiology group. She will be seen with [facility] medical [facility], has an appointment with Dr. Jailene Lawson on September 11. During her stay, hypokalemia was treated. We are stopping her chlorthalidone until she has been on her Cardizem CD and atenolol for a while. She did receive antibiotics on the first encounter in the emergency room because of the abnormal ity on chest x-ray and CT showing atelectasis. However the patient did not have hypoxia, no elevated white cell count, and no fever. As such antibiotics were not continued. At discharge the patient was ambulating in the room to go to the bathroom by herself. No ataxia, no shortness of breath, no tachycardia. Temperature was 36.9, pulse 94, blood pressure 122/80, respirations 20 and 97% on room air. She is 5 feet 5 inches tall and weighs 63.5 kg. Shy appearing female who looks her stated age. Neck is supple without JVD. Lungs have no abnormalities. There is no crackles rhonchi or wheezing. She will need follow-up for the pulmonary nodule seen on CT. She had no cough or shortness of breath during her stay. She has an irregular rate and rhythm. No murmur. The abdomen is benign. Extremities have no edema. She is discharged in stable condition. Greater than 30 minutes was spent coordinating discharge and discussing medications and going over instructions. - ALLERGIES Allergies/Adverse Reactions: Allergies Allergy/AdvReac Type Severity Reaction Status Date / Time No Known Drug Allergies Allergy Verified 09/01/20 22:38 - MEDICATIONS Home Medications: Ambulatory Orders Medication Instructions Recorded Confirmed Cholecalciferol [Vitamin D3] 5,000 unit PO DAILY 09/02/20 09/02/20 Potassium Chloride 10 meq PO BIDWM 09/02/20 09/02/20 Progesterone,Micronized 200 mg PO QPM 09/02/20 09/02/20 [Prometrium] Thyroid,Pork [[place] Thyroid] 120 mg PO QDAC 09/02/20 09/02/20 Rivaroxaban [Xarelto] 20 mg PO DAILY #30 tablet 09/03/20 atenoloL [Tenormin] 50 mg PO DAILY #60 tablet 09/04/20 dilTIAZem HCL [Diltiazem 24Hr ER 240 mg PO DAILY #30 cap.er.deg 09/04/20 (Xr)] - LABS Result Diagrams: 09/04/20 05:20 09/04/20 05:20"
[2020-09-04] MEDS ORDERED: RIVAROXABAN 15 MG TABLET PO SCH (17:00)
[2020-09-04 17:19] VITALS: BP 133/82
== END 2020-09-04 17:24 | disposition home or self-care (01) | DRG 280 ==
LOC: EDUNIT# → ED 22:26 → ICU 09-02 02:02
PROVIDERS: ADMIT Internal Medicine; ATTEND Specialist
DX: I48.91 Unspecified atrial fibrillation (principal); R07.9 Chest pain, unspecified; I21.A1 Myocardial infarction type 2; J18.9 Pneumonia, unspecified organism; E87.1 Hypo-osmolality and hyponatremia; I20.9 Angina pectoris, unspecified; I10 Essential (primary) hypertension; E87.6 Hypokalemia; E03.9 Hypothyroidism, unspecified; G47.00 Insomnia, unspecified; R00.1 Bradycardia, unspecified; R91.1 Solitary pulmonary nodule; I95.89 Other hypotension; E78.5 Hyperlipidemia, unspecified; Z20.828 Contact with and (suspected) exposure to other viral communicable diseases; E86.1 Hypovolemia; R79.89 Other specified abnormal findings of blood chemistry
CPT/HCPCS: 36415; 71045; 71275; 80048; 80053; 80061; 82040; 83690; 83735; 84100; 84443; 84484; 85025; 85610; 85730; 87150; 93005; 93306; 96374; 99284; 99285; A9270; J1650; Q9967; U0004; 83721

== ENCOUNTER 2021-05-02 14:36 | Outpatient (CLI) | payer MEDICARE, OTHER ==
[2021-05-02 14:47] LABS: BASOPHILS % (AUTO) 0.4 %; EOSINOPHILS # (AUTO) 0.3 10^3/uL (0.0-0.7); EOSINOPHILS % (AUTO) 3.7 %; HCT - HEMATOCRIT 41.5 % (37.0-47.0); LYMPHOCYTES # (AUTO) 1.8 10^3/uL (1.5-3.5); LYMPHOCYTES % (AUTO) 21.7 %; MEAN CORPUSCULAR HEMOGLOBIN 30.7 pg (27.0-31.0); MEAN CORPUSCULAR HGB CONC 33.7 g/dL (32.0-36.0); MEAN PLATELET VOLUME 8.9 fL (7.9-10.8); MONOCYTES # (AUTO) 0.7 10^3/uL (0.0-1.0); MONOCYTES % (AUTO) 8.9 %; NEUTROPHILS # (AUTO) 5.3 10^3/uL (1.5-6.6); NEUTROPHILS % (AUTO) 65.2 %; PLT - PLATELET COUNT 311 10^3/uL (130-450); RED BLOOD COUNT 4.56 10^6/uL (4.20-5.40); RED CELL DISTRIBUTION WIDTH 13.3 % (12.0-15.0); WHITE BLOOD COUNT 8.1 x10^3/uL (4.8-10.8)
== END 2021-05-02 14:37 | disposition home or self-care (01) ==
LOC: LAB 14:36
PROVIDERS: ATTEND Orthopaedic Surgery
DX: Z96.651 Presence of right artificial knee joint (principal)
CPT/HCPCS: 36415; 85025; 85651; 86140

== ENCOUNTER 2021-07-21 14:55 | Outpatient (CLI) | payer MEDICARE, OTHER ==
[2021-07-21 15:34] LABS: ALBUMIN 3.9 g/dL (3.2-5.5); ALBUMIN/GLOBULIN RATIO 1.1 (1.0-2.2); ALKALINE PHOSPHATASE 44 IU/L (42-121); ALT ALANINE AMINOTRANSFERASE 23 IU/L (10-60); AST ASPARTATE AMINOTRANSFERASE 19 IU/L (10-42); BILIRUBIN,TOTAL 0.7 mg/dL (0.2-1.0); BUN - BLOOD UREA NITROGEN 20 mg/dL (6-20); CALCIUM 9.1 mg/dL (8.5-10.3); CARBON DIOXIDE - CO2 33 mmol/L (21-32); CHLORIDE 97 mmol/L (101-111); CHOL/HDL RATIO 3.5 (<4.4); CHOLESTEROL 191 mg/dL; CREATININE 0.6 mg/dL (0.4-1.0); GFR - MDRD 95 (>89); GLUCOSE 113 mg/dL (70-100); HDL CHOLESTEROL 55 mg/dL; LDL CHOLESTEROL,CALCULATED 125 mg/dL; LDL/HDL RATIO 2.3 (<4.4); POTASSIUM 3.8 mmol/L (3.5-5.0); SODIUM 139 mmol/L (135-145); TOTAL PROTEIN 7.3 g/dL (6.7-8.2); TRIGLYCERIDES 54 mg/dL; VLDL CHOLESTEROL 11 mg/dL
== END 2021-07-21 14:56 | disposition home or self-care (01) ==
LOC: LAB 14:55
PROVIDERS: ATTEND Family Medicine
DX: I10 Essential (primary) hypertension (principal); E03.9 Hypothyroidism, unspecified
CPT/HCPCS: 36415; 80053; 80061; 83721; 84443

== ENCOUNTER 2022-04-08 13:18 | Outpatient (CLI) | payer MEDICARE, OTHER ==
--- NOTE | 2022-04-08 16:58 | CT Report ---
PROCEDURE: CT chest without contrast INDICATIONS: ABNORMAL FINDING OF LUNG FIELD TECHNIQUE: Noncontrast 1mm axial images were acquired from the pulmonary apices to the posterior costophrenic an gles. Axial 5 mm soft tissue kernel reconstructions were performed as well as 8 mm axial MIP and cor onal and sagittal 5 mm reformations. For radiation dose reduction, the following was used: automate d exposure control, adjustment of mA and/or kV according to patient size. COMPARISON: CT injury and chest 09/02/2020 FINDINGS: Image quality: Excellent. Lungs and pleura: Bilateral lower lobe bronchiectasis has worsened in the interval. The right middle lobe pulmonary scarring is stable. Left lower lobe peripheral nodule on image 5/258 has improved in size now measuring 4 mm, previously 6 mm. Left lower lobe 3 mm nodule on image 5/197 is stable Right middle lobe pleural-based nodule on image 5/236 is smaller in size now measuring 5 mm, previous ly 7 mm No new nodules Mediastinum: Heart size is normal. No pericardial effusion. No mediastinal adenopathy by size crit eria. Thoracic aorta and central pulmonary arteries are normal in size. Esophagus is normal in bethany dominga. No hiatal hernia. Bones and chest wall: No suspicious bony lesions. No vertebral body compression fractures. No axil deb or supraclavicular adenopathy by size criteria. The thyroid is normal in size and there are no incidental findings. Abdomen: Visualized upper abdominal solid organs and bowel loops appear normal in the absence of con trast. Partially visualized left renal simple cyst IMPRESSION: 1. Worsening central bronchiectasis with bibasilar scarring. 2. Subcentimeter pulmonary nodules have improved in size. Consider 1 additional one-year follow-up [facility] Reviewed by: Alfredo Roque MD on 04/08/2022 3:57 PM AKDT Approved by: Alfredo Roque MD on 04/08/2022 3:57 PM AKDT Station ID: [id number]
== END 2022-04-08 13:19 | disposition home or self-care (01) ==
LOC: DI 13:18
PROVIDERS: ATTEND Internal Medicine Cardiovascular Disease
DX: R91.8 Other nonspecific abnormal finding of lung field (principal); J47.9 Bronchiectasis, uncomplicated

== ENCOUNTER 2022-05-05 08:00 | Outpatient (CLI) | payer MEDICARE, OTHER ==
--- NOTE | 2022-05-06 15:56 | XRAY Report ---
PROCEDURE: Chest 2 View X-Ray INDICATIONS: ACUTE COVID-19, AND PERSISTENT COUGH TECHNIQUE: 2 view(s) of the chest. COMPARISON: CT chest 04/08/2022, chest x-ray 09/01/2020. FINDINGS: Surgical changes and devices: None. Lungs and pleura: There is persistent and progressive appearance of bibasilar opacities, left greater than right compared to prior exam. Mediastinum: Mediastinal contours are normal. Heart size is normal. Bones and chest wall: No suspicious bony abnormalities. Soft tissues appear unremarkable. IMPRESSION: Progressive bibasilar opacities, left greater than right most suspicious for pneumonia. Reviewed by: Laxmi Andino MD on 05/06/2022 3:54 PM PDT Approved by: Laxmi Andino MD on 05/06/2022 3:54 PM PDT Station ID: [id number]
== END 2022-05-05 23:59 | disposition home or self-care (01) ==
LOC: DI.N 08:00
PROVIDERS: ATTEND Nurse Practitioner
DX: R91.8 Other nonspecific abnormal finding of lung field (principal); U07.1 COVID-19
CPT/HCPCS: 36415; 85025

== ENCOUNTER 2024-05-07 18:19 | Outpatient (CLI) | payer MEDICARE, OTHER | END 2024-05-07 23:59 | disposition critical access hospital (66) | LOC: EMS 18:19 | DX: R53.1 Weakness (principal) | CPT/HCPCS: A0425; A0429 ==

== ENCOUNTER 2024-05-07 18:29 | Emergency (ER) | payer MEDICARE, OTHER ==
--- NOTE | 2024-05-07 18:48 | ED Physician Documentation ---
History of Present Illness - Stated complaint Stated Complaint: GEN WEAKNESS - Chief complaint Chief Complaint: General - History obtained from History obtained from: Patient - Additonal information Additional information: She has a history of a single episode of atrial fibrillation about 4 years ago. She was hospitalized for same. Her symptom at that time was throat tightness and she developed that this evening again around 4:00 and lasted about half an hour. It started at rest. There is no chest pain with it, trouble breathing, nausea, dizziness, or sweatiness. It resolved on its own and by the time paramedics got there she was symptom-free and in normal sinus rhythm on her EKG. She feels fine now but does note some subacute fatigue as well and wonders if her thyroid levels are off. PD PAST MEDICAL HISTORY - Past Medical History Past Medical History: Yes Cardiovascular: Hypertension Respiratory: None Neuro: None Endocrine/Autoimmune: HyPOthyroidism GI: None : None Psych: None Musculoskeletal: Osteoarthritis Derm: Eczema - Past Surgical History Past Surgical History: No Ortho: Knee replacement /[employer]: Hysterectomy - Present Medications Home Medications: Ambulatory Orders Medication Instructions Recorded Confirmed Cholecalciferol [Vitamin D3] 5,000 unit PO DAILY 09/02/20 09/02/20 Potassium Chloride 10 meq PO BIDWM 09/02/20 09/02/20 Progesterone, Micronized 200 mg PO QPM 09/02/20 09/02/20 [Prometrium] Thyroid,Pork [[place] Thyroid] 120 mg PO QDAC 09/02/20 09/02/20 Rivaroxaban [Xarelto] 20 mg PO DAILY #30 tablet 09/03/20 atenoloL [Tenormin] 50 mg PO DAILY #60 tablet 09/04/20 dilTIAZem HCL [Diltiazem 24Hr ER 240 mg PO DAILY #30 cap.er.deg 09/04/20 (Xr)] - Allergies Allergies/Adverse Reactions: Allergies Allergy/AdvReac Type Severity Reaction Status Date / Time No Known Drug Allergies Allergy Verified 05/07/24 18:48 - Social History Does the pt smoke?: No Smoking Status: Never smoker Does the pt drink ETOH?: No Does the pt have substance abuse?: No - Immunizations Immunizations are current?: Yes - POLST Patient has POLST: No POLST Status: Full Code PD ED PE NORMAL - Vitals Vital signs reviewed: Yes - General General: Alert and oriented X 3, No acute distress - Neck Neck: Supple, no meningeal sign, No bony TTP - Cardiac Cardiac: RRR, No murmur - Respiratory Respiratory: No respiratory distress, Clear bilaterally - Abdomen Abdomen: Non tender - Extremities Extremities: No edema, No calf tenderness / cord - Neuro Neuro: Alert and oriented X 3 Results - Vitals Vitals: Vital Signs - 24 hr 05/07/24 05/07/24 18:36 19:00 Temperature 36.8 C Heart Rate 74 73 Respiratory 20 22 Rate Blood Pressure 151/73 H 144/71 H O2 Saturation 100 96 Oxygen O2 Source Nasal cannula - EKG (time done) 1851 EKG releavant findings:: EKG personally interpreted by author of this note. Relevant findings are: Rate: Rate (enter#) (70) Rhythm: NSR [place]: Normal Intervals: Normal VT QRS: Normal Ischemia: Normal ST segments - Labs Labs: Laboratory Tests 05/07/24 05/07/24 18:59 18:59 WBC 13.4 H RBC 4.67 Hgb 14.0 Hct 42.1 MCV 90.1 MCH 30.0 MCHC 33.3 RDW 14.7 Plt Count 387 MPV 8.3 Neut # (Auto) 9.9 H Lymph # (Auto) 2.2 [place] # (Auto) 1.1 H Eos # (Auto) 0.2 Baso # (Auto) 0.0 Absolute Nucleated RBC 0.00 Nucleated RBC % 0.0 Sodium 131 L Potassium 3.4 L Chloride 98 L Carbon Dioxide 27 Anion Gap 6.0 BUN 17 Creatinine 0.9 Estimated GFR (MDRD) 59 L Glucose 202 H Calcium 9.2 Magnesium 1.6 L Total Bilirubin 0.4 AST 14 ALT 18 Alkaline Phosphatase 39 L Total Protein 7.0 Albumin 3.7 Globulin 3.3 Albumin/Globulin Ratio 1.1 TSH 0.20 L Free T4 Direct 1.81 H Free T3 pg/mL 2.71 PD Medical Decision Making - ED course ED course: She presents with what was her prior equivalent for A-fib which was throat tightness. It lasted 30 minutes and went away. Happened at rest and there is nothing else to suggest it was an anginal equivalent. She was normal sinus rhythm by the time EMS had gone to her but she was asymptomatic by that time as well. Here she remained in normal sinus rhythm we checked labs which demonstrated nonspecific leukocytosis but otherwise normal CBC, potassium level and sodium level slightly low with hyperglycemia. She does have some mild iatrogenic hyperthyroidism and advised to follow-up with her PCP for consideration for alteration of dosing of her thyroid supplement. Departure - Departure Disposition: 01 Home, Self Care Clinical Impression: Hyperthyroidism Chest pain Qualifiers: Chest pain type: other chest pain Qualified Code(s): R07.89 - Other chest pain Condition: Good Record reviewed to determine appropriate education?: Yes Instructions: ED Chest Pain NonCardiac Comments: You were seen today for an episode that could have been A-fib but since your symptoms had resolved before you had an EKG or cardiac monitoring done it is hard to say. You remained in normal sinus rhythm here. I did find that you are slightly hyperthyroid, so discussed with your primary care physician a decrease in your thyroid supplementation dosing. Being hyperthyroid will increase your risk of arrhythmias such as atrial fibrillation. Your sodium and potassium levels were also slightly low. Call your doctor to arrange a follow-up appointment, make the next available appointment. In the interim, return anytime if worse or if new symptoms develop. Forms: PCP List
[2024-05-07 19:03] LABS: BASOPHILS % (AUTO) 0.2 %; EOSINOPHILS # (AUTO) 0.2 10^3/uL (0.0-0.7); EOSINOPHILS % (AUTO) 1.2 %; HCT - HEMATOCRIT 42.1 % (37.0-47.0); LYMPHOCYTES # (AUTO) 2.2 10^3/uL (1.5-3.5); LYMPHOCYTES % (AUTO) 16.2 %; MEAN CORPUSCULAR HGB CONC 33.3 g/dL (32.0-36.0); MEAN CORPUSCULAR VOLUME 90.1 fL (81.0-99.0); MEAN PLATELET VOLUME 8.3 fL (7.9-10.8); MONOCYTES # (AUTO) 1.1 10^3/uL (0.0-1.0); MONOCYTES % (AUTO) 8.2 %; NEUTROPHILS # (AUTO) 9.9 10^3/uL (1.5-6.6); NEUTROPHILS % (AUTO) 73.7 %; PLT - PLATELET COUNT 387 10^3/uL (130-450); RED BLOOD COUNT 4.67 10^6/uL (4.20-5.40); RED CELL DISTRIBUTION WIDTH 14.7 % (12.0-15.0); WHITE BLOOD COUNT 13.4 x10^3/uL (4.8-10.8)
[2024-05-07 19:17] LABS: ALBUMIN 3.7 g/dL (3.2-5.5); ALBUMIN/GLOBULIN RATIO 1.1 (1.0-2.2); BILIRUBIN,TOTAL 0.4 mg/dL (0.2-1.0); CALCIUM 9.2 mg/dL (8.5-10.3); CREATININE 0.9 mg/dL (0.6-1.3); MAGNESIUM 1.6 mg/dL (1.7-2.3); POTASSIUM 3.4 mmol/L (3.5-4.5)
[2024-05-07 19:29] VITALS: O2SAT 96
[2024-05-07 19:48] LABS: THYROID STIMULATING HORMONE 0.2 uIU/mL (0.34-5.60)
[2024-05-07 20:10] VITALS: BP 151/74
== END 2024-05-07 20:09 | disposition home or self-care (01) ==
LOC: EDUNIT# → ED 18:29
DX: E05.90 Thyrotoxicosis, unspecified without thyrotoxic crisis or storm (principal); R07.89 Other chest pain; E87.1 Hypo-osmolality and hyponatremia; E87.6 Hypokalemia
CPT/HCPCS: 36415; 80053; 83735; 84439; 84443; 84481; 85025; 93005; 99284

== ENCOUNTER 2024-05-16 19:51 | Emergency (ER) | payer MEDICARE, OTHER ==
--- NOTE | 2024-05-16 23:07 | ED Physician Documentation ---
History of Present Illness - Stated complaint Stated Complaint: L ARM LAC - Chief complaint Chief Complaint: Laceration - History obtained from History obtained from: Patient - Additonal information Additional information: HPI from patient. Patient presents with left forearm laceration. She says she was walking down some stairs at home when she missed a step, causing her to momentarily lose balance. She says she did not fall but sustained left FA injury when it struck the stair railing. She denies NAILS, numbness, weakness. She says she is UTD on tetanus immunization (within 5 years). 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 - Present Medications Home Medications: Ambulatory Orders Medication Instructions Recorded Confirmed Cholecalciferol [Vitamin D3] 5,000 unit PO DAILY 09/02/20 09/02/20 Potassium Chloride 10 meq PO BIDWM 09/02/20 09/02/20 Progesterone, Micronized 200 mg PO QPM 09/02/20 09/02/20 [Prometrium] Thyroid,Pork [[place] Thyroid] 120 mg PO QDAC 09/02/20 09/02/20 Rivaroxaban [Xarelto] 20 mg PO DAILY #30 tablet 09/03/20 atenoloL [Tenormin] 50 mg PO DAILY #60 tablet 09/04/20 dilTIAZem HCL [Diltiazem 24Hr ER 240 mg PO DAILY #30 cap.er.deg 09/04/20 (Xr)] - Allergies Allergies/Adverse Reactions: Allergies Allergy/AdvReac Type Severity Reaction Status Date / Time adhesive AdvReac Rash Verified 05/16/24 20:51 - Social History Does the pt smoke?: No Smoking Status: Never smoker Does the pt drink ETOH?: No Does the pt have substance abuse?: No - Immunizations Immunizations are current?: Yes - POLST Patient has POLST: No POLST Status: Full Code PD ED PE NORMAL - Vitals Vital signs reviewed: Yes - General General: Alert and oriented X 3, No acute distress, Well developed/nourished - HEENT HEENT: Atraumatic, PERRL, EOMI - Extremities Extremities: Other (large skin tear to dorsal surface of left FA without bony tenderness. ALONZO left elbow, wrist. 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 speech is not slurred on my exam) Eye Opening: Spontaneous Motor: Obeys Commands Verbal: Oriented GCS Score: 15 Results - Vitals Vitals: Vital Signs - 24 hr 05/16/24 05/16/24 05/17/24 20:45 23:12 01:09 Temperature 36.5 C Heart Rate 83 70 74 Respiratory 18 18 18 Rate Blood Pressure 150/74 H 159/83 H 155/88 H O2 Saturation 99 99 98 Oxygen O2 Source Room air PD Medical Decision Making - ED course Complexity details: considered differential, d/w patient ED course: left FA skin tear, skin is too thin to benefit from suture repair. ED RN reapproximated the wound edges with steri-strips. I was told by ED RN that patient was exhibiting slurred speech when triaged. As above, on my exam her speech is clear (not slurred), although she has a stuttering/stammering kennedy to her speech at times. She has a normal neurologic exam on my exam and is AAOx3. She denies head injury, denies NALIS, denies weakness/numbness. Patient told ED director of strategic initiatives (and then confirmed with me) that she had a fall four days ago due to loss of balance, but she tells me she did not hit her head, denies LOC and again denies NAILS. Patient and I had a long conversation regarding whether her kennedy of speech is normal for her. I explained that if she has any new neurologic abnormalities (I specifically mentioned changes in speech, changes in vision, changes in mentation, headache, weakness, numbness), then I would recommend testing to include CT of her head. She eventually says to me that she does not feel her speech is abnormal for her and she again denies the concerning symptoms I have delineated and she is requesting d/c home. I advised her to follow up with PCP within the next week for recheck of the left FA injury. Return precautions were reviewed. Departure - Departure Disposition: Home, Self Care Clinical Impression: Skin tear of forearm without complication Qualifiers: Encounter type: initial encounter Laterality: left Qualified Code(s): S51.812A - Laceration without foreign body of left forearm, initial encounter Condition: Good Instructions: ED Laceration Chin Sutr Tape Comments: The injury to your left forearm is a skin tear; the skin is too thin to benefit from sutures ("stitches"; these would simply tear through the skin). Instead, Steri-Strips were placed to keep the edges of the wound approximated, and the wound will slowly heal over the next few weeks. As we discussed, I recommend you contact your primary care provider's office later this morning when the office opens to arrange for a follow-up appointment towards the end of this week or early next week (for reevaluation of the left forearm injury). Discharge Date/Time: 05/17/24 01:10
[2024-05-17 01:16] VITALS: BP 155/88; O2SAT 98
== END 2024-05-17 01:10 | disposition home or self-care (01) ==
LOC: ED 19:51
DX: S51.812A Laceration without foreign body of left forearm, initial encounter (principal); W10.8XXA Fall (on) (from) other stairs and steps, initial encounter; Y93.89 Activity, other specified; Y92.89 Other specified places as the place of occurrence of the external cause; W22.09XA Striking against other stationary object, initial encounter
CPT/HCPCS: 99281; 99282

== ENCOUNTER 2024-05-17 10:08 | Outpatient (CLI) | payer MEDICARE, OTHER | END 2024-05-17 23:59 | disposition critical access hospital (66) | LOC: EMS 10:08 | DX: R47.81 Slurred speech (principal); S50.812A Abrasion of left forearm, initial encounter; W19.XXXA Unspecified fall, initial encounter; Y92.002 Bathroom of unspecified non-institutional (private) residence as the place of occurrence of the external cause | CPT/HCPCS: A0425; A0429 ==

== ENCOUNTER 2024-05-17 10:20 | Emergency (ER) | payer MEDICARE, OTHER ==
--- NOTE | 2024-05-17 10:29 | ED Physician Documentation ---
PD HPI Fall - Stated complaint Stated Complaint: FOUND DOWN - History obtained from History obtained from: Patient - History of Present Illness Mechanism of injury: Unknown Fall distance: Standing position (The patient was found down by her on the bathroom floor complaining of some pain to the head and neck. Small skin tear on the left elbow. She had been seen yesterday for a forearm skin tear with unknown cause/fall. noted slurred speech today.) Where injury occurred: Home Timing - onset: Today Injury(ies) location: Head (oicciput), Neck, Left Uppper Extremity (elbow), Right Lower Extremity (lateral lower leg) Pain level max: 3 Pain level now: 3 Associated symptoms: AMS (trouble understanding her speech clearly). No: LOC, Weakness, Paresthesias Contributing factors: Anticoagulated Similar symptoms before: Has not had sx before Recently seen: Emergency Dept (yesterday for skin tear left forearm. 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 - Present Medications Home Medications: Ambulatory Orders Medication Instructions Recorded Confirmed Cholecalciferol [Vitamin D3] 5,000 unit PO DAILY 09/02/20 09/02/20 Potassium Chloride 10 meq PO BIDWM 09/02/20 09/02/20 Progesterone, Micronized 200 mg PO QPM 09/02/20 09/02/20 [Prometrium] Thyroid,Pork [[place] Thyroid] 120 mg PO QDAC 09/02/20 09/02/20 Rivaroxaban [Xarelto] 20 mg PO DAILY #30 tablet 09/03/20 atenoloL [Tenormin] 50 mg PO DAILY #60 tablet 09/04/20 dilTIAZem HCL [Diltiazem 24Hr ER 240 mg PO DAILY #30 cap.er.deg 09/04/20 (Xr)] - Allergies Allergies/Adverse Reactions: Allergies Allergy/AdvReac Type Severity Reaction Status Date / Time adhesive AdvReac Rash Verified 05/16/24 20:51 - Social History Does the pt smoke?: No Smoking Status: Never smoker Does the pt drink ETOH?: No Does the pt have substance abuse?: No - Immunizations Immunizations are current?: Yes - POLST Patient has POLST: No POLST Status: Full Code PD ED PE NORMAL - Vitals Vital signs reviewed: Yes - General General: No acute distress, Well developed/nourished, Other (some slurring of speech and sluggish answers. No focal weakness. ) - HEENT HEENT: Other (tender back of head without laceration nor bleeding. ) - Neck Neck: Supple, no meningeal sign, No adenopathy - Respiratory Respiratory: No respiratory distress, Clear bilaterally, Other (no chestwall tenderness.) - Abdomen Abdomen: Soft, Non tender Results - Vitals Vitals: Vital Signs - 24 hr 05/17/24 10:30 Temperature 36.5 C Heart Rate 74 Respiratory 20 Rate Blood Pressure 175/86 H O2 Saturation 95 Oxygen O2 Source Room air - Labs Labs: Laboratory Tests 05/17/24 05/17/24 10:27 10:27 WBC 12.5 H RBC 4.50 Hgb 13.8 Hct 40.6 MCV 90.2 MCH 30.7 MCHC 34.0 RDW 14.3 Plt Count 326 MPV 8.3 Neut # (Auto) 9.8 H Lymph # (Auto) 1.3 L Sebastian # (Auto) 1.2 H Eos # (Auto) 0.1 Baso # (Auto) 0.0 Absolute Nucleated RBC 0.00 Nucleated RBC % 0.0 Sodium 130 L Potassium 3.4 L Chloride 95 L Carbon Dioxide 29 Anion Gap 6.0 BUN 20 Creatinine 0.6 Estimated GFR (MDRD) 95 Glucose 92 Calcium 9.3 Magnesium 1.5 L Total Bilirubin 0.4 AST 16 ALT 21 Alkaline Phosphatase 41 L Total Creatine Kinase 46 Total Protein 7.1 Albumin 3.7 Globulin 3.4 Albumin/Globulin Ratio 1.1 Lipase < 10 L - Rads (name of study) cervical CT Relevant Findings:: Prelim report reviewed, EMP independent interpretation of test (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 No fractures. ) heac CT Relevant Findings:: Prelim report reviewed, EMP independent interpretation of test (9 mm thickness right subdural hematoma wihtout midline shift. ) PD Medical Decision Making - ED course Complexity details: reviewed results (Remote arthritic changes and surgical changes in the neck. No acute fractures. The head shows a right subdural h ematoma without any midline shift. Maximal thickness 9 mm. She is on anticoagulant.), considered differential, d/w patient, d/w family (spouse), d/w clothing consultant (Transfer center at [facility]), other (I talked with the [facility] ER attending who accepted transfer. Suggested [facility]. This had already been ordered along with TXA.) - Critical Care Time(min): 45 Time Includes: Direct patient care, Document care, Coordinate care, Medical consult, Family consult for tx sep Departure - Departure Disposition: 02 Transfer Acute Care Hosp Clinical Impression: Subdural hematoma, Anticoagulant long-term use, Expressive aphasia, Hematoma of lower leg Scalp contusion Qualifiers: Encounter type: initial encounter Qualified Code(s): S00.03XA - Contusion of scalp, initial encounter Skin tear of elbow without complication Qualifiers: Encounter type: initial encounter Laterality: left Qualified Code(s): S51.012A - Laceration without foreign body of left elbow, initial encounter Condition: Stable Record reviewed to determine appropriate education?: Yes
[2024-05-17 10:40] LABS: BASOPHILS % (AUTO) 0.2 %; EOSINOPHILS # (AUTO) 0.1 10^3/uL (0.0-0.7); HCT - HEMATOCRIT 40.6 % (37.0-47.0); HGB - HEMOGLOBIN 13.8 g/dL (12.0-16.0); LYMPHOCYTES # (AUTO) 1.3 10^3/uL (1.5-3.5); LYMPHOCYTES % (AUTO) 10.2 %; MEAN CORPUSCULAR HEMOGLOBIN 30.7 pg (27.0-31.0); MEAN CORPUSCULAR VOLUME 90.2 fL (81.0-99.0); MEAN PLATELET VOLUME 8.3 fL (7.9-10.8); MONOCYTES # (AUTO) 1.2 10^3/uL (0.0-1.0); MONOCYTES % (AUTO) 9.7 %; NEUTROPHILS # (AUTO) 9.8 10^3/uL (1.5-6.6); NEUTROPHILS % (AUTO) 78.1 %; PLT - PLATELET COUNT 326 10^3/uL (130-450); RED CELL DISTRIBUTION WIDTH 14.3 % (12.0-15.0); WHITE BLOOD COUNT 12.5 x10^3/uL (4.8-10.8)
[2024-05-17 10:54] LABS: ALBUMIN 3.7 g/dL (3.2-5.5); ALBUMIN/GLOBULIN RATIO 1.1 (1.0-2.2); ALKALINE PHOSPHATASE 41 IU/L (42-121); ALT ALANINE AMINOTRANSFERASE 21 IU/L (10-60); AST ASPARTATE AMINOTRANSFERASE 16 IU/L (10-42); BILIRUBIN,TOTAL 0.4 mg/dL (0.2-1.0); BUN - BLOOD UREA NITROGEN 20 mg/dL (6-20); CALCIUM 9.3 mg/dL (8.5-10.3); CARBON DIOXIDE - CO2 29 mmol/L (21-32); CHLORIDE 95 mmol/L (101-111); CK- CREATINE KINASE 46 IU/L (30-223); CREATININE 0.6 mg/dL (0.6-1.3); GFR - MDRD 95 (>89); GLUCOSE 92 mg/dL (74-104); MAGNESIUM 1.5 mg/dL (1.7-2.3); POTASSIUM 3.4 mmol/L (3.5-4.5); SODIUM 130 mmol/L (135-145); TOTAL PROTEIN 7.1 g/dL (6.4-8.9)
[2024-05-17 10:55] LABS: LIPASE < 10 U/L (11-82)
--- NOTE | 2024-05-17 11:11 | CT Report ---
PROCEDURE: Head WO INDICATIONS: fall, head/neck pain, on DOAC TECHNIQUE: Noncontrast 4.5 mm thick angled axial sections acquired from the foramen magnum to the vertex. For r adiation dose reduction, the following was used: automated exposure control, adjustment of mA and/or kV according to patient size. COMPARISON: None. FINDINGS: Image quality: Excellent. CSF spaces: Basal cisterns are patent. There is a right temporal acute subdural hematoma measuring 9 mm in thickness. Reference axial image 20 of series 2 (coronal image 23 of series 6. There is no sig nificant mass effect or shift. Ventricles are normal in size and shape. Brain: Subdural hematoma. No midline shift. Moderate to severe small vessel ischemic change. Age-rela lana volume loss. Intracranial carotid calcifications. Biggs-white matter interface is normal. Skull and face: Calvarium and visualized facial bones are intact, without suspicious lesions. Sinuses: Visualized sinuses and mastoids are clear. IMPRESSION: Acute right temporal subdural hematoma with maximum thickness of 9 mm without midline shift. Age-related volume loss and moderate to severe small vessel ischemic change. Above discussed with eric mas at the time of dictation on 05/17/2024 at 1107 hours. Reviewed by: Zaheer Mauro MD on 05/17/2024 11:10 AM PDT Approved by: Zaheer Mauro MD on 05/17/2024 11:10 AM PDT Station ID: [id number]
--- NOTE | 2024-05-17 11:14 | CT Report ---
PROCEDURE: Cervical Spine WO INDICATIONS: fall, on ground, neck/head pain TECHNIQUE: Noncontrast 3 mm thick sections acquired from the skull base to the T4 level. Sagittal and coronal r eformats were then constructed. For radiation dose reduction, the following was used: automated exp osure control, adjustment of mA and/or kV according to patient size. COMPARISON: None. FINDINGS: Image quality: Excellent. Bones: Remote ACDF at C3-C6 with anterior plate and screw fixation and mature interbody fusion. Ther e is no evidence of hardware failure or loosening. Cervical spondylitic change. Left-sided bony leticia inal narrowing at C5-C6 and C6-C7 No fractures or dislocations. Visualized superior ribs are intact. Soft tissues: Prevertebral soft tissues are normal in thickness. No paravertebral hematomas. No ap ical pneumothoraces. IMPRESSION: 1. Remote multilevel fusion with expected appearance of orthopedic surgical hardware. 2. No acute cervical fracture or dislocation. 3. Cervical spondylosis. Reviewed by: Zaheer Mauro MD on 05/17/2024 11:13 AM PDT Approved by: Zaheer Mauro MD on 05/17/2024 11:13 AM PDT Station ID: [id number]
--- NOTE | 2024-05-17 11:17 | XRAY Report ---
PROCEDURE: Chest 1V INDICATIONS: fall, found on floor TECHNIQUE: One view of the chest was acquired. COMPARISON: 05/05/2022. FINDINGS: Surgical changes and devices: Cervical fusion hardware. Lungs and pleura: No pleural effusions or pneumothorax. Improved appearance versus the previous stud y. There is focal atelectasis in the right mid to lower lung field. Density in the left lung base may either represent recurrent pneumonia, potentially aspiration, or scarring. Mediastinum: Mediastinal contours appear normal. Heart size is normal. Bones and chest wall: No suspicious bony lesions. Overlying soft tissues appear unremarkable. IMPRESSION: 1. Improved appearance relative to the previous study. 2. Question recurrent left basilar pneumonia (possibly aspiration) or residual scarring. Reviewed by: Zaheer Mauro MD on 05/17/2024 11:15 AM PDT Approved by: Zaheer Mauro MD on 05/17/2024 11:15 AM PDT Station ID: [id number]
[2024-05-17] MEDS ORDERED: PROTHROMBIN COMPLEX CONC 500 UNIT VIAL IVP STA (11:56)
[2024-05-17] MEDS: TRANEXAMIC ACID 1,000 MG in SODIUM CHLORIDE 0.9% 100ML 100 ML IV STA (12:35)
[2024-05-17] MEDS: PROTHROMBIN COMPLEX CONC 500 UNIT VIAL IVP STA (12:40)
[2024-05-17 12:56] VITALS: BP 178/100; O2SAT 96
== END 2024-05-17 12:54 | disposition short-term general hospital (02) ==
LOC: EDUNIT# → ED 10:20
DX: S06.5XAA Traumatic subdural hemorrhage with loss of consciousness status unknown, initial encounter (principal); S51.012A Laceration without foreign body of left elbow, initial encounter; S00.03XA Contusion of scalp, initial encounter; S80.11XA Contusion of right lower leg, initial encounter; W19.XXXA Unspecified fall, initial encounter; Y92.002 Bathroom of unspecified non-institutional (private) residence as the place of occurrence of the external cause; R47.01 Aphasia; Z79.01 Long term (current) use of anticoagulants
CPT/HCPCS: 36415; 70450; 71045; 72125; 80053; 82550; 83690; 83735; 85025; 96374; 96375; 99281; 99282; 99285; J7168

== ENCOUNTER 2024-06-26 15:55 | Outpatient (CLI) | payer MEDICARE, OTHER | END 2024-06-26 23:59 | disposition critical access hospital (66) | LOC: EMS 15:55 | DX: M54.50 Low back pain, unspecified (principal); W18.39XA Other fall on same level, initial encounter; Y92.009 Unspecified place in unspecified non-institutional (private) residence as the place of occurrence of the external cause; R53.1 Weakness | CPT/HCPCS: A0425; A0429 ==

== ENCOUNTER 2024-06-26 16:10 | Emergency (ER) | payer MEDICARE, OTHER ==
--- NOTE | 2024-06-26 16:44 | ED Physician Documentation ---
History of Present Illness - Stated complaint Stated Complaint: GLF - Chief complaint Chief Complaint: Back Pain - History obtained from History obtained from: Patient, EMS - History of Present Illness Timing: Today Pain level max: 4 Pain level now: 0 - Additonal information Additional information: Patient is an 84-year-old female who is on Eliquis. She states that she fell today landing on her buttocks, complaining of diffuse back pain. She recently was transferred to [facility] in April for a subdural hematoma. Reportedly she went home 5 days ago. Patient does not think that she struck her head, has slurred speech at baseline. Full range of motion of her legs and arms without pain. She has no pain unless she is moving. Patient denies and head or neck pain. She does not have any numbness or tingling. Has not taken anything for pain. Review of Systems Constitutional: denies: Fever, Chills Nose: denies: Rhinorrhea / runny nose, Congestion Throat: denies: Sore throat Cardiac: denies: Chest pain / pressure Respiratory: denies: Cough GI: denies: Abdominal Pain, Nausea, Vomiting, Diarrhea Skin: denies: Rash Musculoskeletal: denies: Neck pain Neurologic: denies: Focal weakness, Numbness, LOC PD PAST MEDICAL HISTORY - Past Medical History Cardiovascular: Hypertension, Atrial fibrillation Respiratory: None Neuro: None Endocrine/Autoimmune: HyPOthyroidism GI: None : None Psych: None Musculoskeletal: Osteoarthritis Derm: Eczema - Past Surgical History Past Surgical History: No 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 - Present Medications Home Medications: Ambulatory Orders Medication Instructions Recorded Confirmed Cholecalciferol [Vitamin D3] 5,000 unit PO DAILY 09/02/20 09/02/20 Potassium Chloride 10 meq PO BIDWM 09/02/20 09/02/20 Progesterone, Micronized 200 mg PO QPM 09/02/20 09/02/20 [Prometrium] Thyroid,Pork [[place] Thyroid] 120 mg PO QDAC 09/02/20 09/02/20 Rivaroxaban [Xarelto] 20 mg PO DAILY #30 tablet 09/03/20 atenoloL [Tenormin] 50 mg PO DAILY #60 tablet 09/04/20 dilTIAZem HCL [Diltiazem 24Hr ER 240 mg PO DAILY #30 cap.er.deg 11/11/20 (Xr)] Ondansetron Odt [Zofran] 4 mg TL Q6H PRN #10 tablet 06/26/24 oxyCODONE [Roxicodone] 5 mg PO Q6H PRN #20 tablet MDD 6 06/26/24 - Allergies Allergies/Adverse Reactions: Allergies Allergy/AdvReac Type Severity Reaction Status Date / Time adhesive AdvReac Rash Verified 06/26/24 16:26 - Social History Does the pt smoke?: No Smoking Status: Never smoker Does the pt drink ETOH?: No Does the pt have substance abuse?: No - Immunizations Immunizations are current?: Yes - POLST Patient has POLST: No POLST Status: Full Code PD ED PE NORMAL - Vitals Vital signs reviewed: Yes - General General: Alert and oriented X 3, No acute distress, Well developed/nourished - HEENT HEENT: Atraumatic, PERRL, Moist mucous membranes, Other (Mild slurred speech.) - Neck Neck: Supple, no meningeal sign - Cardiac Cardiac: RRR, Strong equal pulses - Respiratory Respiratory: No respiratory distress, Clear bilaterally - Abdomen Abdomen: Soft, Non tender, Non distended - Back Back: No spinal TTP (No midline tenderness to palpation or percussion. No step- off or deformity.) - Derm Derm: Warm and dry - Extremities Extremities: No edema, No calf tenderness / cord, Other (Full range of motion of all major joints without pain.) - Neuro Neuro: Alert and oriented X 3 Eye Opening: Spontaneous Motor: Obeys Commands Verbal: Oriented GCS Score: 15 Results - Vitals Vitals: Vital Signs - 24 hr 06/26/24 06/26/24 16:13 20:18 Temperature 35.9 C L Heart Rate 84 97 Respiratory 16 20 Rate Blood Pressure 163/82 H 146/82 H O2 Saturation 94 93 Oxygen O2 Source Room air - Rads (name of study) head CT Relevant Findings:: Final report received, See rad report CT c spine Relevant Findings:: Final report received, See rad report CT t spine Relevant Findings:: Final report received, See rad report CT L spine Relevant Findings:: Final report received, See rad report PD Medical Decision Making - ED course Complexity details: reviewed results, re-evaluated patient, considered differential, d/w patient, d/w family ED course: 84-year-old female status post a ground level fall. She is found to have an L2 end plate fracture. There is no retropulsion of fragments or loss of height. She has a smaller appearing subdural hemorrhage than prior. No evidence of acute bleeding. There is a possible ninth and 10th rib fracture, but she is not tender over this area. Unclear if this is from a prior fall as it does not correlate to her symptoms today. She was given oxycodone for pain and feels better when moving but still is having pain. She does not want to go to a prison and does not want to be readmitted to the hospital. She states that she will never go back to [facility]. She has physical therapy coming to the home in the morning. We will prescribe pain medication for Home and have her follow up with her doctor for further care. The patient does tend to breathe shallow, so an incentive spirometer was given. Instructions were also performed. Patient and family counseled regarding signs and symptoms for which I believe an urgent re-evaluation would be necessary. Patient and family with good understanding of and agreement to plan and is comfortable going home at this time. This document was made in part using voice recognition software. While efforts are made to proofread this document, sound alike and grammatical errors may occur. Departure - Departure Disposition: 01 Home, Self Care Clinical Impression: L2 vertebral fracture Qualifiers: Encounter type: initial encounter Fracture type: closed Fracture morphology: unspecified fracture morphology Qualified Code(s): S32.029A - Unspecified fracture of second lumbar vertebra, initial encounter for closed fracture Rib fracture Qualifiers: Encounter type: initial encounter Rib fracture type: multiple ribs Fracture type: closed Laterality: right Qualified Code(s): S22.41XA - Multiple fractures of ribs, right side, initial encounter for closed fracture Condition: Good Instructions: ED Fx Comp Vertebral, ED Fx Rib Follow-Up: your,doctor in 1 week [Other] Prescriptions: oxyCODONE [Roxicodone] 5 mg PO Q6H PRN #20 tablet MDD 6 PRN Reason: pain Ondansetron Odt [Zofran] 4 mg TL Q6H PRN #10 tablet PRN Reason: Nausea / Vomiting Comments: Your prescriptions were sent to [facility] in [place]. You can use the medication as needed for pain. As we discussed you do have an L2 fracture in your back. I have also prescribed Zofran to help with any nausea from the pain medication. As we discussed the subdural hemorrhage is decreased in size. The CT scan of her cervical and thoracic spines did not show any acute fractures. There does appear to be an acute fracture of your right posterior ninth and 10th ribs. These are not displaced. Discharge Date/Time: 06/26/24 21:10
[2024-06-26] MEDS: ACETAMINOPHEN 325 MG TABLET PO STA (19:13)
--- NOTE | 2024-06-26 19:29 | CT Report ---
PROCEDURE: Cervical Spine WO INDICATIONS: fall, pain TECHNIQUE: Noncontrast 3 mm thick sections acquired from the skull base to the T4 level. Sagittal and coronal r eformats were then constructed. For radiation dose reduction, the following was used: automated exp osure control, adjustment of mA and/or kV according to patient size. COMPARISON: None. FINDINGS: Image quality: Excellent. Bones: Diffuse osseous demineralization limits sensitivity for subtle nondisplaced fracture. Within t hese limitations, no acute fracture or traumatic subluxation. Anterior cervical fusion hardware from C3 to C6 with interbody disc spacers is intact with no perihardware lucency to suggest hardware loose laya. Straightening of the normal cervical lordosis. Remainder of the spine demonstrates mild to mode rate multilevel degenerative changes with disc height loss, osteophytosis and facet arthropathy. Visu alized superior ribs are intact. Soft tissues: Prevertebral soft tissues are normal in thickness. No paravertebral hematomas. No ap ical pneumothoraces. Atrophic thyroid gland with calcified right nodule. No nodules which require ul trasound follow-up. Calcification of the bilateral carotid bulbs. IMPRESSION: 1.Diffuse osseous demineralization limits sensitivity for subtle nondisplaced fracture. Within these limitations, no acute fracture or traumatic subluxation. If clinical symptoms persist, consider MRI f or further evaluation. 2.Anterior cervical fusion hardware from C5 to C6 is intact without complication. 3.[id number] multilevel degenerative changes of the spine. Reviewed by: Petar Castillo MD on 06/26/2024 6:27 PM CHLOÉ Approved by: Petar Castillo MD on 06/26/2024 6:27 PM CHLOÉ Station ID: [id number]
--- NOTE | 2024-06-26 19:35 | CT Report ---
PROCEDURE: Thoracic Spine WO INDICATIONS: fall, pain TECHNIQUE: Noncontrast 3 mm thick sections acquired through the region of interest in the thoracic spine. Sagit ambika and coronal reformats were then constructed. For radiation dose reduction, the following was used : automated exposure control, adjustment of mA and/or kV according to patient size. COMPARISON: Radiograph on May 17, 2024. CT chest on May 08, 2022. FINDINGS: Image quality: Excellent. Bones: Diffuse osseous demineralization limits sensitivity for subtle nondisplaced fracture. Within t hese limitations, no acute fracture or traumatic subluxation. Moderate to marked multilevel degenerat max changes with osteophytosis, disc height loss and facet arthropathy.. No suspicious sclerotic or lytic bony lesions. Central spinal canal is of normal overall caliber. Remote right posterior ninth and 10th rib fractures. Stable acute nondisplaced right posterior ninth and 10th rib fractures ( , 44). Soft tissues: No paravertebral masses or hematomas. Visualized posteromedial lungs appear clear. B ilateral multifocal patchy consolidation, worse in the bilateral lower lobes. IMPRESSION: Diffuse osseous demineralization limits sensitivity for subtle nondisplaced fracture. 1.Within these limitations, no acute fracture or traumatic subluxation of the thoracic spine. If clin ical symptoms persist, consider MRI for further evaluation. 2.Acute, nondisplaced fractures of the right posterior ninth and 10th ribs. 3.Moderate to marked multilevel degenerative changes of the spine, similar to prior CT dated May 08, 2022. 4.Bilateral multifocal patchy consolidation in the lungs compatible with aspiration and/or pneumonia. Recommend radiographic follow-up to document resolution and rule out underlying malignancy. Reviewed by: Petar Castillo MD on 06/26/2024 6:33 PM CHLOÉ Approved by: Petar Castillo MD on 06/26/2024 6:33 PM CHLOÉ Station ID: [id number]
--- NOTE | 2024-06-26 19:40 | CT Report ---
PROCEDURE: Lumbar Spine WO INDICATIONS: fall, pain TECHNIQUE: Noncontrast 3 mm thick sections acquired from the T12 level to the sacrum. Sagittal and coronal refo rmats were constructed. For radiation dose reduction, the following was used: automated exposure co ntrol, adjustment of mA and/or kV according to patient size. COMPARISON: None. FINDINGS: Image quality: Excellent. Bones: Acute fracture of the anterosuperior endplate of L2 (16/, 14/). No significant height loss or osseous retropulsion. Straightening of the normal lumbar lordosis. Retrolisthesis of L4 on L5 of approximately 3 mm. Moderate to marked multilevel degenerative changes of the spine. No suspicious ly tic or blastic bony lesions. Central spinal caliber is of normal overall caliber. No pars defects. Mild levoconvex curvature of the lumbar spine. Soft tissues: No retroperitoneal masses or hematomas. Visualized aorta is normal in caliber. Exten sive colonic diverticulosis, without diverticulitis. Bladder is markedly distended. Marked calcificat ion of the abdominal aorta and iliac vessels. Hysterectomy. IMPRESSION: 1.Acute fracture of the anterosuperior endplate of L2 with no significant height loss or osseous retr opulsion (AO spine: A1 wedge/impaction). 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 3.Marked distention of the urinary bladder. 4.Colonic diverticulosis, without diverticulitis. Reviewed by: Petar Castillo MD on 06/26/2024 6:39 PM CHLOÉ Approved by: Petar Castillo MD on 06/26/2024 6:39 PM AKANNA Station ID: [id number]
--- NOTE | 2024-06-26 20:04 | CT Report ---
PROCEDURE: Head WO INDICATIONS: fall, pain, subdural 05/17/24 TECHNIQUE: Noncontrast 4.5 mm thick angled axial sections acquired from the foramen magnum to the vertex. For r adiation dose reduction, the following was used: automated exposure control, adjustment of mA and/or kV according to patient size. COMPARISON: CT head 05/17/2024. FINDINGS: Image quality: Diagnostic. CSF spaces: Basal cisterns are patent. Compared to prior CT on 05/17/2024, decreased size of right witt bdural hematoma measuring up to 6 mm in thickness (6). Ventricles are normal in size and shape. Brain: No midline shift. No intracranial masses or hemorrhage. Biggs-white matter interface is norm al. Skull and face: Calvarium and visualized facial bones are intact, without suspicious lesions. Sinuses: Visualized sinuses and mastoids are clear. IMPRESSION: Compared to prior CT 05/17/2024, decreased size of right subdural hematoma. No new acute intracranial abnormality identified. Reviewed by: Elmira Arce MD, PhD on 06/26/2024 8:02 PM PDT Approved by: Elmira Arce MD, PhD on 06/26/2024 8:02 PM PDT Station ID: [id number]
[2024-06-26 20:22] VITALS: BP 146/82; O2SAT 93
[2024-06-26] MEDS: oxyCODONE 5 MG TABLET PO STA (20:25)
[2024-06-26] MEDS: oxyCODONE/ACET 5/325 Prepack 4 PO STA (20:54)
== END 2024-06-26 21:10 | disposition home or self-care (01) ==
LOC: ED 16:10
DX: S32.029A Unspecified fracture of second lumbar vertebra, initial encounter for closed fracture (principal); S22.41XA Multiple fractures of ribs, right side, initial encounter for closed fracture; W18.30XA Fall on same level, unspecified, initial encounter; I10 Essential (primary) hypertension; I48.91 Unspecified atrial fibrillation; E03.9 Hypothyroidism, unspecified; Z79.01 Long term (current) use of anticoagulants; Z79.899 Other long term (current) drug therapy
CPT/HCPCS: 70450; 72125; 72128; 72131; 99284; A9270

== ENCOUNTER 2024-06-26 21:51 | Outpatient (CLI) | payer MEDICARE, OTHER | END 2024-06-26 21:52 | disposition home or self-care (01) | LOC: EMS 21:51 | PROVIDERS: ATTEND Emergency Medicine | DX: S32.029A Unspecified fracture of second lumbar vertebra, initial encounter for closed fracture (principal); S22.41XA Multiple fractures of ribs, right side, initial encounter for closed fracture; W18.30XA Fall on same level, unspecified, initial encounter | CPT/HCPCS: A0425; A0428 ==

== ENCOUNTER 2024-06-27 18:01 | Outpatient (CLI) | payer MEDICARE, OTHER | END 2024-06-27 23:59 | disposition short-term general hospital (02) | LOC: EMS 18:01 | DX: R06.02 Shortness of breath (principal) | CPT/HCPCS: A0425; A0429 ==